=== PATIENT | male | born 1955 | race Caucasian/White ===

== ENCOUNTER 2022-07-23 08:25 | Outpatient (CLI) | payer MEDICARE, SELFPAY ==
--- NOTE | ~2022-07-23 | US_ITS ---
EXAMINATION: US abdomen complete DATE: 07/23/2022 09:42 INDICATION: Disorder of bilirubin metabolism TECHNIQUE: Multiple grayscale and Doppler ultrasound images of the abdomen were obtained. COMPARISON: None FINDINGS: Abdominal aorta is normal in caliber measuring 2.6 cm proximally, 2.3 cm the mid aorta and 2.0 cm in the distal aorta with normal triphasic waveforms on color Doppler. The pancreatic head and body are n ormal in appearance. The pancreatic tail is not visualized. Liver has normal echogenicity and contou r, with a smooth surface. No liver lesion identified. No intrahepatic biliary duct dilation suspected . Portal venous flow was seen in the hepatopetal, normal direction and has normal Doppler waveform. T he gallbladder is normal in appearance. There is no cholelithiasis. The common bile duct measures 2- 3 mm, which is normal. Sonographic Valencia sign was reported as negative by the public health teacher. There is normal renal contour and echogenicity bilaterally. The right kidney measures 11.1 x 5.7 x 5.3 cm and the left 11.2 x 7.0 x 5.3 cm. There are no focal renal lesions identified. There is no hydronephros is. Spleen measures 11.2 cm maximal length which is normal with multiple small echogenic and shadowin g calcifications likely sequela of old granulomatous disease. IMPRESSION: 1. Normal liver and gallbladder with no intra or extrahepatic biliary ductal dilation. Reviewed, dictated and finalized at location B. IMPRESSION: 1. Normal liver and gallbladder with no intra or extrahepatic biliary ductal di lation.
== END 2022-07-23 08:26 | disposition home or self-care (01) ==
PROVIDERS: PCP Emergency Medicine; Visit Provider Emergency Medicine
DX: E80.7 Disorder of bilirubin metabolism, unspecified (principal)
CPT/HCPCS: 76700

== ENCOUNTER → 2023-01-07 12:38 | Outpatient (CLI) | payer MEDICARE, SELFPAY ==
--- NOTE | ~2023-01-07 | CT_ITS ---
EXAMINATION: CT sinus wo con DATE: 01/07/2023 13:06 INDICATION: Sinus congestion. Deviated septum. TECHNIQUE: Computed tomography (CT) of the paranasal sinuses was performed without contrast. Iterativ e reconstruction technique was employed. Exam dose: 287.09 mGy-cm total exam DLP. COMPARISON: None FINDINGS: There is rightward deviation of the nasal septum. The inferior nasal turbinates are moderat salvador prominent, relatively symmetric. There is more prominent soft tissue swelling of the middle nasal turbinates with soft tissue opacification of the middle meatus bilaterally. There is mild mucoperiosteal thickening of the infrarenal portions of both frontal sinuses and extens mohit patchy opacification of the ethmoid air cells bilaterally. The right maxillary sinus and right ostiomeatal unit are completely opacified. There is severe soft tissue thickening of the left maxillary sinus, the lower half of the sinus compl etely opacified. There is opacification of the left maxillary ostium and infundibulum and left ethmoi d bulla. There is mild mucosal periosteal thickening of the sphenoid sinuses. The mastoid air cells are normally developed and aerated bilaterally. IMPRESSION: Rightward deviation of nasal septum Soft tissue swelling of the nasal turbinates, especially the middle nasal turbinates Opacification of the middle meatus bilaterally Opacification of the ostiomeatal units bilaterally Mild mucoperiosteal thickening of the intervertebral aspect of both frontal sinuses Extensive opacification of the ethmoid air cells bilaterally Complete opacification of the right maxi llary sinus and paraspinal soft tissue thickening of the left axilla sinus, especially the lower half Mild mucosal thickening of the sphenoid sinuses Reviewed, dictated and finalized at [facility]. Reviewed, dictated and finalized at location B. IMPRESSION: Rightward deviation of nasal septum Soft tissue swelling of the nasal turbinates, especially the middle nasal turbi nates Opacification of the middle meatus bilaterally Opacification of the ostiomeatal units bilaterally Mild mucoperiosteal thickening of the intervertebral aspect of both frontal sin uses Extensive opacification of the ethmoid air cells bilaterally Complete opacifica tion of the right maxillary sinus and paraspinal soft tissue thickening of the left axilla sinus, especially the lower half Mild mucosal thickening of the sphenoid sinuses
== END ==
PROVIDERS: PCP Emergency Medicine; Visit Provider Emergency Medicine
DX: J34.2 Deviated nasal septum (principal); R09.81 Nasal congestion; J34.3 Hypertrophy of nasal turbinates
CPT/HCPCS: 70486

== ENCOUNTER 2023-06-01 01:28 | Day surgery (SDC) | payer MEDICARE, SELFPAY ==
[2023-05-20 15:50] VITALS: BMI 26.2
--- NOTE | 2023-05-20 15:58 | PC.NURSE ---
Report to the Outpatient Waiting Room, entrance under the green pavilion located off [facility], at time __0700 on date ___06/01/23____. Planned Procedure Time: ___0900 . Time changes happen often and if your time is changed the preop area will call you the afternoon before. - You and your visitor will be asked to self-screen and do not enter if you have any COVID symptoms. - A mask is optional within the hospital at this time. Patients may have clear liquids (water, carbonated beverages, clear teas, apple juice) until 3 hours prior to surgery (0600 AM) with a maximum of 20 ounces. - No food from midnight until time of surgery - Infants may have breast milk until 4 hours before surgery, formula 6 hours prior to surgery. - Children will be allowed to drink immediately following surgery. If applicable, please bring a bottle or sippy cup to assist with drinking. Juice, water, soda, and popsicles are readily available. For infants on formula, please bring formula the day of surgery. Pacifiers are allowed. Take the following medications with a SIP of water the morning of surgery: ____NONE DO NOT STOP ANY OF YOUR OTHER PRESCRIPTION MEDICATIONS PRIOR TO SURGERY ?EXCEPT THE FOLLOWING Medications to discontinue per physician ALL VITAMINS/SUPPLEMENTS Date to take last dose____05/28/23 Please no make-up, nail telugu, hairspray, perfume, deodorant, or body powder the day of surgery. No jewelry (including any body piercings) or valuables the day of surgery, leave them at home. Please take a shower or bath the night before, or the morning of, surgery with an antibacterial soap. Wear comfortable, loose fitting clothing. Children are encouraged to wear pajamas. - Jewelry must be removed prior to entering the operating room. Rings and piercings that are not removed may be cut off. - The hospital will not accept responsibility for valuables. - Please leave all valuables, including medications, at home the day of surgery. If you are going home after surgery, a licensed cpr ambulance driver must drive you home. - NO public transportation without another adult if you receive anesthesia. - We recommend that an adult stay with you for 24 hours following discharge. - We also recommend that you do not drive, make important decision, drink alcoholic beverages, or take any drugs that were not prescribed by your health care provider for at least 24 hours after your discharge time. For Pediatric surgeries, we recommend two adults accompany the child home. Follow any additional instructions given to you from your surgeon. If you or anyone in your household have experienced Covid symptoms in the past week, please notify your surgeon or the nurse liaison at the phone number below for possible testing. Telephone instructions given to ____PT and asked if any additional questions and then verbalized understanding. Patient advised to call surgeon office or pre surgery nurse liaison [phone] if any additional questions.
[2023-06-01] VITALS (9 sets, daily range): BP systolic 127–166; BP diastolic 75–99; PULSE 54–66; RESP 10–18; TEMP 36.1–36.2; O2SAT 98–100
[2023-06-01] MEDS: ACETAMINOPHEN 500 MG TABLET 1000 MG PO (06:27)
[2023-06-01] MEDS: LACTATED RINGERS 1,000 ML 30 ML IV CONT ×2 (06:28→09:24)
--- NOTE | 2023-06-01 06:41 | P.PNAN_ITS ---
Anes - Initial Pre Proc Eval Procedure: Operation Date: 06/01/23 07:30 Proposed Procedures p Fusion Guided Bilateral Frontal Sinusotomy, Bilateral Ethmoidectomy, Bilateral Sphenoidotomy, Bilateral Maxillary Antrostomy, Bilateral Turbinate Reduction, - Deven Stewart MD s Septoplasty - Deven Stewart MD Date/Time: 06/01/23 06:41 Surgeon: Deven Stewart MD Pre Op Diagnosis: nasal polyps, chronic sinusitis Patient Data Age: 68 Gender: M Height: 1.8 m Weight: 85.45 kg Allergies Allergy/AdvReac Type Severity Reaction Status Date / Time No Known Allergies Allergy Verified 06/01/23 06:20 Home Medications Medication Instructions Recorded Confirmed Type B-complex with vitamin C 1 cap PO TID 05/20/23 06/01/23 History Black Garlic 500 mg DAILY 05/20/23 06/01/23 History Trace Meneral 1 tab-cap DAILY 05/20/23 06/01/23 History ascorbic acid 30 mg-collagen, 2 tablet PO TID 05/20/23 06/01/23 History hydrolyzed 833.3 mg tablet (Collagen Skin Renewal) calcium carbonate 333 mg-magnesium 1 tablet TID 05/20/23 06/01/23 History oxide 133 mg-zinc gluc 5 mg tablet folic acid 800 mcg tablet 0.8 mg PO DAILY 05/20/23 06/01/23 History glucosamine sulf dipot 2 cap PO BID 05/20/23 06/01/23 History chlr,msm,chond 550 mg-C 30 mg-ramos 1 mg capsule (Glucosamine Chondroitin) iodine 150 mcg tablet 150 mcg PO DAILY 05/20/23 06/01/23 History lactobacillus comb no.10 20 20,000 mmu cells PO DAILY 05/20/23 06/01/23 History billion cell capsule (Probiotic) lecithin 1260 mg capsule 1,260 mg PO DAILY 05/20/23 06/01/23 History methionine 500 mg capsule 500 mg PO BID 05/20/23 06/01/23 History vitamin A 3,000 mcg (10,000 unit) 3,000 mcg PO DAILY 05/20/23 06/01/23 History capsule vitamin E (dl, acetate) 400 unit 1 unit PO DAILY 05/20/23 06/01/23 History chewable tablet yeast 500 mg (7.5 gr) tablet 500 mg DAILY 05/20/23 06/01/23 History Patient hx anesthesia problems: none Family hx anesthesia problems: none Results Review: All pre-operative results and documents have been reviewed as part of the pre- operative evaluation. COUNT INCLUDES THE [facility] Past Medical History Medical History (Updated 06/01/23 @ 06:42 by Jimy Gonzales DO) CHICA (obstructive sleep apnea) Social History Social History Smoking status: Never smoker Second hand tobacco smoke exposure: No Alcohol intake: never Substance use: never Substance use type: does not use Living arrangements: alone Spiritual care concerns: No Anes - Eval Final PreProcedure Day of Procedure 06/01/23 06:41 Patient weight: overweight Heart: regular rate and rhythm Lungs: clear to auscultation Airway: Mallampati scale class II Neurological: alert and oriented Last oral intake: >/= 8 hours ASA classification: II Emergent: no Anesthetic plan: proceed Anesthesia type and monitoring: general ETT and standard monitoring Results Review: All pre-operative results and documents have been reviewed as part of the pre- operative evaluation. Informed Consent: The patient's anesthetic plan and its attendant risks and benefits were discussed with the patient/family/POA. Questions were solicited and answers provided to the satisfaction of the patient/family/POA.
[2023-06-01] MEDS: OXYMETAZOLINE HCL 0.05% NAS 15 ML BTL (*BKC) 1 SPRAY NASAL (06:55)
--- NOTE | 2023-06-01 07:08 | PM.IMHP ---
H&P: HPI History of Present Illness Date/Time: 06/01/23 07:08 Chief Complaint: nasal polyps Narrative: nasal polyps Review of Systems Review of Systems: All systems reviewed & are unremarkable except as noted in HPI and below PMFSH Past Medical History Medical History CHICA (obstructive sleep apnea) Social History Social History Smoking status: Never smoker Second hand tobacco smoke exposure: No Alcohol intake: never Substance use: never Substance use type: does not use Living arrangements: alone Spiritual care concerns: No Meds Home Medications and Allergies Home Medications Medication Instructions Recorded Confirmed Type B-complex with vitamin C 1 cap PO TID 05/20/23 06/01/23 History Black Garlic 500 mg DAILY 05/20/23 06/01/23 History Trace Meneral 1 tab-cap DAILY 05/20/23 06/01/23 History ascorbic acid 30 mg-collagen, 2 tablet PO TID 05/20/23 06/01/23 History hydrolyzed 833.3 mg tablet (Collagen Skin Renewal) calcium carbonate 333 mg-magnesium 1 tablet TID 05/20/23 06/01/23 History oxide 133 mg-zinc gluc 5 mg tablet folic acid 800 mcg tablet 0.8 mg PO DAILY 05/20/23 06/01/23 History glucosamine sulf dipot 2 cap PO BID 05/20/23 06/01/23 History chlr,msm,chond 550 mg-C 30 mg-ramos 1 mg capsule (Glucosamine Chondroitin) iodine 150 mcg tablet 150 mcg PO DAILY 05/20/23 06/01/23 History lactobacillus comb no.10 20 20,000 mmu cells PO DAILY 05/20/23 06/01/23 History billion cell capsule (Probiotic) lecithin 1260 mg capsule 1,260 mg PO DAILY 05/20/23 06/01/23 History methionine 500 mg capsule 500 mg PO BID 05/20/23 06/01/23 History vitamin A 3,000 mcg (10,000 unit) 3,000 mcg PO DAILY 05/20/23 06/01/23 History capsule vitamin E (dl, acetate) 400 unit 1 unit PO DAILY 05/20/23 06/01/23 History chewable tablet yeast 500 mg (7.5 gr) tablet 500 mg DAILY 05/20/23 06/01/23 History Allergies Allergy/AdvReac Type Severity Reaction Status Date / Time No Known Allergies Allergy Verified 06/01/23 06:20 Vital Signs Vital Signs - 24 hr 06/01/23 06:06 Temperature 36.1 C L Pulse Rate 54 L Respiratory Rate 18 Blood Pressure 127/76 Pulse Oximetry 100 Oxygen Delivery Room Air Exam Narrative: bilateral nasal polyps Assessment and Plan Assessment and plan (1) Nasal polyps: Code(s): J33.9 - Nasal polyp, unspecified Status: Acute Plan Zachary has chronic sinusitis and bilateral nasal polyps, here for endoscopic sinus surgery, septoplasty turbinoplasty under image guidance. r/b/a reviewed, all questions answered, pt agrees to proceed. Refer to outpt H&P for additional details.
--- NOTE | 2023-06-01 07:10 | WPDHPUPDATE1 ---
History and Physical Update Update Date/Time: 06/01/23 07:10 History and Physical has been reviewed, including an updated exam of the patient. There are NO changes in the patient's condition. Risks, benefits, and alternatives have been discussed and questions answered. Patient agrees to proceed with procedure.
[2023-06-01] MEDS: ceFAZolin 2 GM/D5W 50 ML 2 GM/50 ML BAG IVPB (07:25)
[2023-06-01] MEDS: LIDO 1%/EPINEPHRINE 1:100,000 20 ML VIAL 5 ML INFILTRATE (07:58)
[2023-06-01] MEDS: MUPIROCIN 2% OINT 22 GM TUBE 1 APPLIC EACH NARE (07:59)
--- NOTE | 2023-06-01 09:05 | W.PM.PROC2 ---
Procedure Note - Detailed Date of Procedure 06/01/23 Pre-op Diagnosis nasal polyps, chronic sinusitis Post-op Diagnosis Same Procedure Performed Bilateral frontal sinusotomy, total ethmoidectomy, maxillary antrostomy, sphenoidotomy, septoplasty and bilateral inferior turbinoplasty under image guidance. Surgeon Deven Stewart MD Anesthesia General Indications chronic sinusitis, deviated septum Findings right septal deviation, bilateral sinus polyps Description of Procedure On the date of procedure the patient was met in the preoperative area and risk and benefits of the procedure reviewed with the patient as documented in the H&P and they elected to proceed with surgery. Patient was brought back to the operating room by the anesthesia team and underwent general endotracheal anesthesia. Once an adequate plane of anesthesia was obtained a timeout was performed to assure the patient identification the patient here to be performed were correct. They were.The patient was then prepped and draped in the normal fashion for endoscopic sinus surgery. The diffusion image guidance system was calibrated and used for the entire case. Afrin-soaked pledgets were placed in the nasal cavities bilaterally. The entire case was performed under endoscopic visualization. Nasal endoscopy was performed at the beginning of the case. 1% lidocaine with 1:100,000 epinephrine was then injected into the root of the middle turbinate and lateral nasal wall. The right side was narrowed due to septal deviation.? Thus, septoplasty was required.? A left hemitransfixion incision was made in the left caudal septum and a mucoperichondrial flap was elevated in the usual fashion. The flap was elevated under endoscopic visualization and the remainder of the case was performed with endoscopic assistance. Using a D-knife, an incision was made through the cartilaginous septum with care to preserve the appropriate caudal and dorsal ?L-strut? of cartilage. The cartilage was then disarticulated from the bony-cartilaginous junction and the deviated cartilage was removed. Further deviated bone and cartilage was removed from the maxillary crest and posterior bony septum with care to avoid injury to the mucoperichondrial flap using a combination of dissection and Tyler forceps. Once this was completed, the hemitransfixion incision was closed using simple interrupted 4-0 chromic suture. A quilting stitch to reapproximate the mucoperichondrial flaps was then placed using 4-0 plain gut suture on a Joseph needle. Attention was then directed towards the right side. The middle turbinate was medialized and the osteomeatal complex was identified with a raya probe. Using a 90 degree backbiter, the uncinate process was reflected anteriorly and removed using a combination of sharp and powered dissection. The maxillary antrostomy was then created and widened by identifying the natural ostia and opening the sinus with straight reji-cut forceps, backbiter, and microdebrider. Continuing with the microdebrider, the anterior ethmoid bulla was opened. Careful dissection was carried out posteriorly, through the basal lamella and posterior ethmoid cells until the sphenoid rostrum was identified. Polyps were noted medial and lateral to the middle turbinate and were removed with microdebrider. A Mushtaq suction bluntly identified the sphenoid os and the opening was widened with microdebrider and mushroom punch to 5mm. Using an image guided curved suction as well as J-curette, the posterior most ethmoid cell was identified and the ethmoids were bluntly fractured and dissected from posterior to anterior along the base of the skull. The remaining bone fragments were removed with appropriate curved instruments and microdebrider.? Lastly, image guided frontal suction and sinus seeker were used to identify the frontal sinus and enter it.? Next, the left maxillary antrostomy, ethmoidectomy and sphenoidotomy were carried out in identical f
[2023-06-01] MEDS: fentaNYL CITRATE INJ (*CRX) 100 MCG/2 ML VIAL 25 MCG IV PUSH ×2 (09:24→09:28)
[2023-06-01] MEDS: oxyCODONE HCL (*CRX) 5 MG TAB IR PO (10:07)
== END 2023-06-01 11:15 | disposition home or self-care (01) ==
PROVIDERS: PCP Emergency Medicine; Visit Provider Otolaryngology
PROC: (CPT 31256; principal; 2023-06-01 07:30)
PROC: (CPT 30520; 2023-06-01 07:30)
DX: J32.9 Chronic sinusitis, unspecified (principal); J34.2 Deviated nasal septum; J33.9 Nasal polyp, unspecified; G47.33 Obstructive sleep apnea (adult) (pediatric); J33.8 Other polyp of sinus
CPT/HCPCS: 31256; 31257; 31276; 61782; 30520; 30140; A9270; J0330; J0690; J1100; J1170; J2250; J2405; J2704; J3010; J7120

== ENCOUNTER 2024-08-17 09:14 | Inpatient (IN) | payer MEDICARE, SELFPAY ==
[2024-08-17] VITALS (21 sets, daily range): BP systolic 122–174; BP diastolic 56–95; PULSE 38–75; RESP 12–147; TEMP 36.2–36.9; O2SAT 97–100
--- NOTE | ~2024-08-17 | XR_ITS ---
XR abdomen gastric tube insert Ordering provider: Padilla Whyte MD History: . ng tube . Comparison: None. FINDINGS: BOWEL: Nasogastric tube is seen with the tip in the distal stomach. Nonobstructive bowel gas pattern. ORGANOMEGALY: None. SIGNIFICANT PATHOLOGIC CALCIFICATIONS: None. OTHER: No free air is seen under the diaphragm. IMPRESSION: Nasogastric tube with the tip in the distal stomach. Reviewed, dictated and finalized at location A. CE ANALYST
--- NOTE | ~2024-08-17 | CT_ITS ---
EXAMINATION: CT abdomen pelvis w con DATE: 08/17/2024 11:09 INDICATION: Generalized abdominal pain. Vomiting. TECHNIQUE: Computed tomography (CT) of the abdomen and pelvis was performed with 100 mL Omnipaque 350 intravenous contrast. Automated exposure control and iterative reconstruction technique were employe d. The dose-length product was 576.23 mGy-cm. COMPARISON: None. FINDINGS: The visualized portions of the lung bases demonstrate mild atelectasis. A calcified right l hilario nodule is consistent with old granulomatous disease. No pleural effusion. The heart size is jeferson l. No pericardial effusion. There are coronary artery calcifications. There is a small sliding hiatal hernia. The liver, gallbladder, pancreas, and adrenal glands are normal. Calcifications in the splee n are consistent with old granulomatous disease. The kidneys are normal. The prostate is mildly enlar ged. There is diverticulosis of the colon without evidence of diverticulitis. The appendix is not vis ualized. There are dilated loops of small bowel with transition point in the mid abdomen. Distal to t he transition point, there are multiple decompressed loops of small bowel with wall thickening and me senteric edema. There is a second transition point distal to these edematous bowel loops that is in c lose proximity to the first transition point, consistent with a closed-loop obstruction. The two jacinto sition points are best seen on coronal images. There is a left inguinal hernia containing fat. There are no pathologically enlarged lymph nodes. There is trace pelvic ascites. There are old healed fract ures of right superior and inferior pubic rami. There is severe lumbar spondylosis. IMPRESSION: 1. Closed-loop small bowel obstruction. I called this result to Dr. Whyte. Reviewed, dictated and finalized at location A. EMIOLOGIST
--- NOTE | 2024-08-17 09:39 | ECG_ITS ---
Test Date: 2024-08-17 09:41:37 Measurements Intervals [place] Rate: 39 P: 64 NH: 177 QRS: 29 QRSD: 97 T: 46 QT: 504 QTc: 407 Interpretive Statements SLOW SINUS BRADYCARDIA BASELINE ARTIFACT- I, II, III, AVR, AVL, AVF, V1 ABNORMAL ECG No previous ECG available for comparison Electronically Signed On 08-17-2024 09:55:21 [employer] by Seun Arroyo D.O.
[2024-08-17 09:59] LABS: Basophils Percent Auto 0.1 % (0.2-1.2); Eosinophils Percent Auto 0.2 % (0-4.4); Hematocrit 42.1 % (42.0-52.0); Hemoglobin 13.9 g/dL (14.0-18.0); Immature Granulocyte Absolute 0.08 K/mm3 (0.00-0.031); Immature Granulocyte Percent A 0.5 % (0-0.5); Lymphocytes Absolute Auto 1.87 K/mm3 (0.9-3.2); Lymphocytes Percent Auto 11.1 % (18.3-44.2); Mean Corpuscular Hemoglobin 28.3 pg (26-34); Mean Corpuscular Volume 85.6 fl (80-100); Mean Platelet Volume 9.6 fl (7.4-10.4); Monocytes Absolute Auto 1.1 K/mm3 (0.1-0.6); Monocytes Percent Auto 6.7 % (2.6-8.5); Neutrophils Absolute Auto 13.7 K/mm3 (1.3-6.7); Neutrophils Percent Auto 81.4 % (45.5-73.1); Platelet Count Result 373 k/mm3 (150-375); Red Blood Count 4.92 M/mm3 (4.6-6.20); White Blood Count 16.9 K/mm3 (4.5-10.0)
[2024-08-17 10:12] LABS: Alanine Aminotransferase 23 U/L (6-50); Albumin Level 4.7 g/dL (3.5-5.1); Alkaline Phosphatase 75 U/L (38-126); Anion Gap 8 mmol/L (4-12); Aspartate Amino Transferase 36 U/L (17-59); Bilirubin,Total 1.5 mg/dL (0.2-1.3); Blood Urea Nitrogen 36 mg/dL (9-20); Calcium 9.3 mg/dL (8.4-10.2); Carbon Dioxide 26 mmol/L (22-30); Chloride 99 mmol/L (98-107); Estimated CRCL calculation 72 ml/min; Estimated Glomerular Filt Rate > 60; Glucose 135 mg/dL (65-110); Lipase 238 U/L (23-300); Potassium 4.6 mmol/L (3.4-5.0); Sodium 133 mmol/L (137-145)
[2024-08-17 10:50] LABS: Add Urine Microscopic? NO; Appearance Urine Clear (Clear); Bilirubin Urine Negative (Negative); Blood Urine Negative (Negative); Color Urine Yellow (Yellow); Glucose Urine UA Negative (Negative); Ketones Urine 1+ mg/dL (Negative); Leukocyte Esterase Ur Negative LEU/UL (Negative); Nitrate Urine Negative (Negative); Protein Urine Negative (Negative); Specific Grav Ur 1.026 (1.001-1.035); Urobilinogen Urine 0.2 mg/dL (<2.0); pH Urine 6.5 (5.0-9.0)
[2024-08-17] MEDS: ONDANSETRON INJ 4 MG/2 ML VIAL IV PUSH ×2 (10:59→18:02)
[2024-08-17] MEDS: SODIUM CHLORIDE 0.9% IV 2,000 ML 999 ML IV CONT (10:59)
[2024-08-17 11:26] LABS: Influenza A QL RT-PCR Negative (Negative); Influenza B QL RT-PCR Negative (Negative); RSV RNA, RT-PCR Negative (Negative); SARS-CoV-2 RNA PCR Negative (Negative)
--- NOTE | 2024-08-17 12:14 | ED.GENADULT ---
HPI - General Adult General Chief complaint: Abdominal Pain Stated complaint: abd pain Time Seen by Provider: 08/17/24 09:43 History of Present Illness HPI narrative: This is a 69-year-old male presenting ED with chief complaint of abdominal pain. At 1:00 a.m. this morning patient developed a pain in his upper abdomen. Says it feels like something is stuck. The pain is nonradiating 10 out 10 intensity and constant. He has never experienced pain like this before there are no exacerbating or alleviating factors. Patient has significant nausea and vomiting of undigested stomach products. He denies fevers chills chest pain or diarrhea. No history of abdominal surgeries. Related Data Home Medications Medication Instructions Recorded Confirmed B-complex with vitamin C 1 cap PO TID 05/20/23 06/01/23 Black Garlic 500 mg DAILY 05/20/23 06/01/23 Trace Meneral 1 tab-cap DAILY 05/20/23 06/01/23 ascorbic acid 30 mg-collagen, 2 tablet PO TID 05/20/23 06/01/23 hydrolyzed 833.3 mg tablet (Collagen Skin Renewal) calcium 333 mg 1 tablet TID 05/20/23 06/01/23 (carbonate)-magnesium 133 mg (oxide)-zinc 5 mg tablet folic acid 800 mcg tablet 0.8 mg PO DAILY 05/20/23 06/01/23 glucosamine sulf dipot 2 cap PO BID 05/20/23 06/01/23 chlr,msm,chond 550 mg-C 30 mg-ramos 1 mg capsule (Glucosamine Chondroitin) iodine 150 mcg tablet 150 mcg PO DAILY 05/20/23 06/01/23 lactobacillus comb no.10 20 20,000 mmu cells PO DAILY 05/20/23 06/01/23 billion cell capsule (Probiotic) lecithin 1260 mg capsule 1,260 mg PO DAILY 05/20/23 06/01/23 methionine 500 mg capsule 500 mg PO BID 05/20/23 06/01/23 vitamin A 3,000 mcg (10,000 unit) 3,000 mcg PO DAILY 05/20/23 06/01/23 capsule vitamin E (dl, acetate) 400 unit 1 unit PO DAILY 05/20/23 06/01/23 chewable tablet yeast 500 mg (7.5 gr) tablet 500 mg DAILY 05/20/23 06/01/23 Allergies Allergy/AdvReac Type Severity Reaction Status Date / Time No Known Allergies Allergy Verified 06/01/23 06:20 [facility] Past Medical History Medical History CHICA (obstructive sleep apnea) Social History Social History Smoking status: Never smoker Second hand tobacco smoke exposure: No Alcohol intake: never Substance use: never Substance use type: does not use Living arrangements: alone Spiritual care concerns: No Exam Narrative: APPEARANCE: No apparent distress. Head: atraumatic. EYES: EOMI, NOSE: Atraumatic NECK: Trachea midline RESPIRATORY: No increased rate of breathing CARDIOVASCULAR: RRR, ABDOMINAL: Tenderness/fullness to palpation in the epigastric area with voluntary guarding MUSCULOSKELETAl: No obvious deformities NEURO: Alert. Moving 4/4 extremities SKIN:: Warm, dry. Normal color PSYCHIATRIC: Normal affect Course Vital Signs Vital signs: Vital Signs Temperature 97.3 F L 08/17/24 09:21 Pulse Rate 45 L 08/17/24 09:21 Respiratory Rate 18 08/17/24 09:21 Blood Pressure 174/76 H 08/17/24 09:21 Pulse Oximetry 100 08/17/24 09:21 Oxygen Delivery Room Air 08/17/24 09:21 Temperature 97.4 F L 08/17/24 11:37 Pulse Rate 56 L 08/17/24 11:37 Respiratory Rate 12 08/17/24 11:37 Blood Pressure 134/95 H 08/17/24 11:37 Pulse Oximetry 100 08/17/24 11:37 Oxygen Delivery Room Air 08/17/24 09:45 Medical Decision Making [facility] Narrative Medical decision making narrative: -Course: 69-year-old male presenting with abdominal pain nausea and vomiting. CT abdomen pelvis showed a closed loop bowel obstruction. White count is 16.9. Patient started on antibiotics/fluids/pain medication/nausea meds. An NG-tube was placed to decompress the stomach. Lactic added. General surgery was consulted. Further management per the inpatient team. -DDX includes but is not limited to: small-bowel obstruction, gastroenteritis, gallbladder disease -Co-morbidities complicating care: obstructive sleep apnea w/ hypoglossal nerve stimulator -Independent interpretation of studies: labs/imaging reviewed -Discussion of Management/Consultants:Juliana Matias -Shared decision making / Disposition:admitted. Vital Signs Vital Signs: Vital Signs Temperature 97.3 F L 08/17/24 09:21 Pulse Rate 45 L 08/17/24 09:21 Respiratory Rate 18 08/17/24 09:21 Blood Pressure 174/76 H 08/17/24 09:21 Pulse Oximetry 100 08/17/24 09:21 Oxygen Delivery Room Air 08/17/24 09:21 Temperature 97.4 F L 08/17/24 11:37 Pulse Rate 56 L 08/17/24 11:37 Respiratory Rate 12 08/17/24 11:37 Blood Pressure 134/95 H 08/17/24 11:37 Pulse Oximetry 100 08/17/24 11:37 Oxygen Delivery Room Air 08/17/24 09:45 Lab Data 08/17/24 09:51 08/17/24 09:51 Labs: Lab Results 08/17/24 08/17/24 Range/Units 09:51 10:41 WBC 16.9 H (4.5-10.0) K/mm3 RBC 4.92 (4.6-6.20) M/mm3 Hgb 13.9 L (14.0-18.0) g/dL Hct 42.1 (42.0-52.0) % MCV 85.6 (80-100) fl MCH 28.3 (26-34) pg MCHC 33.0 (32-36) g/dl RDW 14.0 (11.5-14.5) % Plt Count 373 (150-375) k/mm3 MPV 9.6 (7.4-10.4) fl Immature Gran % (Auto) 0.5 (0-0.5) % Neut % (Auto) 81.4 H (45.5-73.1) % Lymph % (Auto) 11.1 L (18.3-44.2) % [place] % (Auto) 6.7 (2.6-8.5) % Eos % (Auto) 0.2 (0-4.4) % Baso % (Auto) 0.1 L (0.2-1.2) % Lymph # (Auto) 1.87 (0.9-3.2) K/mm3 [place] # (Auto) 1.1 H (0.1-0.6) K/mm3 Eos # (Auto) 0.0 (0-0.3) K/mm3 Baso # (Auto) 0.0 (0.0-0.1) K/mm3 Abs Immat Gran (auto) 0.08 H (0.00-0.031) K/mm3 Absolute Neuts (auto) 13.7 H (1.3-6.7) K/mm3 Absolute Nucleated RBC 0.000 (0.0-0.012) K/mm3 Nucleated RBC % 0.0 (0.0-0.2) % Sodium 133 L (137-145) mmol/L Potassium 4.6 (3.4-5.0) mmol/L Chloride 99 (98-107) mmol/L Carbon Dioxide 26 (22-30) mmol/L Anion Gap 8 (4-12) mmol/L BUN 36 H (9-20) mg/dL Creatinine 0.90 (0.7-1.3) mg/dL Estim Creat Clear Calc 72 ml/min Estimated GFR > 60 (59 - ) Glucose 135 H (65-110) mg/dL Calcium 9.3 (8.4-10.2) mg/dL Total Bilirubin 1.5 H (0.2-1.3) mg/dL AST 36 (17-59) U/L ALT 23 (6-50) U/L Alkaline Phosphatase 75 (38-126) U/L Total Protein 8.0 (6.3-8.2) g/dL Albumin 4.7 (3.5-5.1) g/dL Lipase 238 (23-300) U/L Urine Color Yellow (Yellow) Urine Appearance Clear (Clear) Urine pH 6.5 (5.0-9.0) Ur Specific [place] 1.026 (1.001-1.035) Urine Protein Negative (Negative) mg/dL Urine Glucose (UA) Negative (Negative) mg/dL Urine Ketones 1+ H (Negative) mg/dL Ur Blood (Man) Negative (Negative) Urine Nitrate Negative (Negative) Urine Bilirubin Negative (Negative) Urine Urobilinogen 0.2 (<2.0) mg/dL Leukocyte Esterase Rfl Negative (Negative) BENJAM[place]N/UL Influenza A (RT-PCR) Negative (Negative) Influenza B (RT-PCR) Negative (Negative) RSV (RT-PCR) Negative (Negative) SARS-CoV-2 RNA (RT-PCR) Negative (Negative) Critical Care Time Critical Care Time Critical Care Time: Yes Total Critical Care Time: 35 Discharge Plan Discharge Clinical Impression: Bowel obstruction Patient Disposition: Still a Patient Condition: Stable Prescriptions: No Action methionine 500 mg Capsule 500 mg PO BID vitamin A 3,000 mcg (10,000 unit) Capsule 3,000 mcg PO DAILY folic acid 800 mcg Tablet 0.8 mg PO DAILY lecithin 1,260 mg Capsule 1,260 mg PO DAILY B-complex with vitamin C Capsule 1 cap PO TID vitamin E (dl, acetate) 400 unit Tablet,Chewable 1 unit PO DAILY yeast 500 mg (7.5 gr) Tablet 500 mg DAILY iodine 150 mcg Tablet 150 mcg PO DAILY Probiotic 20 billion cell Capsule 20,000 mmu cells PO DAILY Rx Instructions: administer with a meal calcium carb-mag ox-zinc gluc 333-133-5 mg Tablet 1 tablet TID Glucosamine Chondroitin 550-30-1 mg Capsule 2 cap PO BID Collagen Skin Renewal 30-833.3 mg Tablet 2 tablet PO TID Black Garlic 500 mg DAILY Trace Meneral 1 tab-cap DAILY hydrocodone-acetaminophen 5-325 mg tablet 1 tablet PO Q4H PRN (Reason: pain) Qty: 20 0RF Follow-up/Referrals: Apolinar Anderson MD [Primary Care Provider] -
[2024-08-17] MEDS: HYDROmorphone HCL INJ (*CRX) 1 MG/ML SYR 0.5 MG IV PUSH (12:27)
--- NOTE | 2024-08-17 12:28 | P.HP_ITS ---
H&P: HPI History of Present Illness Date/Time: 08/17/24 12:28 Chief Complaint: Abdominal Pain Narrative: 69 y/o M presents here with abdominal pain with PMH of obstructive sleep apnea (has inspire implant). The patient presents here from home for further evaluation of abdominal pain. He reports acute onset of upper abdominal pain this morning at 1:00 a.m. Abdominal pain is accompanied by nausea without vomiting, chills, and abdominal distention. He describes the abdominal pain as more so on the left, as if something is stuck , slight radiation to the lateral perimeter of his abdomen, constant, and no aggravating or alleviating factors. Patient did attempt to self induce emesis to obtain relief with very little success and no relief. Patient also trialed Gas-X without relief. Patient has no history of small- bowel obstructions. No prior history of abdominal surgeries. Had had multiple colonoscopies, has been told he has a twisted colon that may cause problems later but has thus far not caused. Last bowel movement was at 04:30 a.m. this morning, small and hard. Denies fever, body aches, diarrhea. Initial VS at presentation: 97.3? F, HR 45, RR 18, 174/76, and 100% on RA. ED workup showed: WBC 16.9, hemoglobin 13.9, sodium 133, creatinine 0.9 and GFR >60, glucose 135, UA showed 1+ ketones. Viral PCR negative. CT of the abdomen/pelvis showed a closed loop small-bowel obstruction. Review of Systems Review of Systems: All systems reviewed & are unremarkable except as noted in HPI and below PMFSH Past Medical History Medical History (Updated 08/17/24 @ 16:48 by Juliana Vidales APRN) Nasal polyps CHICA (obstructive sleep apnea) Surgical History Surgical History No pertinent past surgical history Family History Family History Mother Dementia Father COPD (chronic obstructive pulmonary disease) Social History Social History Smoking status: Never smoker Second hand tobacco smoke exposure: No Alcohol intake: never Substance use: never Substance use type: does not use Do You Feel Safe in your Home?: Yes Lack of Transportation: No Lack of Food: Never True Current Housing: I Have Housing Concerned About Future Housing: No Difficulty Paying Gas/Electric Bills: No Difficulty Paying for Meds: No Currently Unemployed: No Education: Bachelor's Degree Difficulty w/ Childcare or Family Care: No Living arrangements: alone Spiritual care concerns: No Meds Home Medications and Allergies Home Medications Medication Instructions Recorded Confirmed Type B-complex with vitamin C 1 cap PO TID 05/20/23 08/17/24 History Black Garlic 500 mg DAILY 05/20/23 08/17/24 History Trace Meneral 1 tab-cap DAILY 05/20/23 08/17/24 History ascorbic acid 30 mg-collagen, 2 tablet PO TID 05/20/23 08/17/24 History hydrolyzed 833.3 mg tablet (Collagen Skin Renewal) calcium 333 mg 1 tablet TID 05/20/23 08/17/24 History (carbonate)-magnesium 133 mg (oxide)-zinc 5 mg tablet folic acid 800 mcg tablet 0.8 mg PO DAILY 05/20/23 08/17/24 History glucosamine sulf dipot 2 cap PO BID 05/20/23 08/17/24 History chlr,msm,chond 550 mg-C 30 mg-ramos 1 mg capsule (Glucosamine Chondroitin) iodine 150 mcg tablet 150 mcg PO DAILY 05/20/23 08/17/24 History lactobacillus comb no.10 20 20,000 mmu cells PO DAILY 05/20/23 08/17/24 History billion cell capsule (Probiotic) lecithin 1260 mg capsule 1,260 mg PO DAILY 05/20/23 08/17/24 History methionine 500 mg capsule 500 mg PO BID 05/20/23 08/17/24 History vitamin A 3,000 mcg (10,000 unit) 3,000 mcg PO DAILY 05/20/23 08/17/24 History capsule vitamin E (dl, acetate) 400 unit 1 unit PO DAILY 05/20/23 08/17/24 History chewable tablet yeast 500 mg (7.5 gr) tablet 500 mg DAILY 05/20/23 08/17/24 History prednisone 20 mg tablet 20 mg PO TID 08/17/24 08/17/24 History Allergies Allergy/AdvReac Type Severity Reaction Status Date / Time No Known Allergies Allergy Verified 08/17/24 15:04 Vital Signs Vital Signs - 24 hr 08/17/24 09:21 08/17/24 09:45 08/17/24 09:35 Temperature 97.3 F L 97.8 F Pulse Rate 45 L 38 L 43 L Respiratory Rate 18 16 15 Blood Pressure 174/76 H 157/80 H 158/83 H Pulse Oximetry 100 100 100 Oxygen Delivery Room Air Room Air 08/17/24 10:31 08/17/24 11:37 Temperature 97.8 F 97.4 F L Pulse Rate 41 L 56 L Respiratory Rate 14 12 Blood Pressure 163/82 H 134/95 H Pulse Oximetry 100 100 Oxygen Delivery Exam Const: General: comfortable and no acute distress Other: , male, nontoxic appearance HENMT: Ears: TM's normal bilaterally Face/Nose/Sinus: Normal nares present (NG in place in R nare) Eyes: General: appearance normal, both eyes and all related structures Sclera: sclerae normal Pupils: Equal, round and reactive pupils present EOM: EOMs intact bilaterally Resp: Effort & Inspection: normal respiratory effort Auscultation: clear to auscultation bilaterally Cardio: Rate: regular rate Rhythm: regular rhythm Other: S1-S2 present without murmur, rub, ectopy GI: Other: Abdomen soft and nondistended. Scant to moderate amount of tenderness with palpation to left/midline upper abdomen Skin: General skin exam: normal color and no rashes or lesions noted Wounds: no wounds Neuro: General: gait normal Speech: normal speech Motor exam (neuro): 5/5 motor strength present throughout Sensory Exam: normal sensation Other: A/Ox4 Extrem: General: normal to inspection Psych: Mental Status: mental status grossly normal Affect: normal affect Other: Good insight and judgment, very pleasant H&P: Results Labs Labs: Short CBC 08/17/24 Range/Units 09:51 WBC 16.9 H (4.5-10.0) K/mm3 Hgb 13.9 L (14.0-18.0) g/dL Hct 42.1 (42.0-52.0) % Plt Count 373 (150-375) k/mm3 BMP 08/17/24 09:51 Sodium 133 L Potassium 4.6 Chloride 99 Carbon Dioxide 26 BUN 36 H Creatinine 0.90 Glucose 135 H Calcium 9.3 Liver Function 08/17/24 Range/Units 09:51 Total Bilirubin 1.5 H (0.2-1.3) mg/dL AST 36 (17-59) U/L ALT 23 (6-50) U/L Alkaline Phosphatase 75 (38-126) U/L Albumin 4.7 (3.5-5.1) g/dL Urine 08/17/24 Range/Units 10:41 Urine Color Yellow (Yellow) Urine Appearance Clear (Clear) Urine pH 6.5 (5.0-9.0) Ur Specific [place] 1.026 (1.001-1.035) Urine Protein Negative (Negative) mg/dL Urine Glucose (UA) Negative (Negative) mg/dL Assessment and Plan Assessment and plan (1) Small bowel obstruction: Code(s): K56.609 - Unspecified intestinal obstruction, unspecified as to partial versus complete obstruction Status: Acute Assessment and Plan: - did not meet SIRS criteria, received 2L bolus. Lactic pending. - CT abdomen/pelvis: Closed loop small-bowel obstruction. There are dilated loops of small bowel with transition point in the mid abdomen. Distal to the transition point, there are multiple decompressed loops of small bowel with wall thickening and mesenteric edema. There is a second tra nsition point distal to these edematous bowel loops that is in close proximity to the first transition point, consistent with a closed-loop obstruction. - general surgery consulted, Florencio GILBERT. awaiting recommendations. OR today - NPO, NG placed - analgesics, antiemetics, and antipyretic p.r.n. - monitor I&Os and maintenance fluids: NS at 75 mL/hr - started on Zosyn on 08/17, continue - trend labs (2) CHICA (obstructive sleep apnea): Code(s): G47.33 - Obstructive sleep apnea (adult) (pediatric) Status: Acute Assessment and Plan: - has inspire implant, surgery in May and activated in Jun Plan Diet: NPO GI Prophylaxis: Pantoprazole DVT Prophylaxis: SCDs Lines: Peripheral Code Status: Full code Quality VTE Prophylaxis VTE prophylaxis: mechanical ordered Hospitalist [facility] Advance Care Plan I have confirmed that the patient's Advanced Care Plan is present, code status is documented, or surrogate decision maker is listed in patient medical record.: Yes Medication Reconciliation I have utilized all available resources to obtain, update and review the patients current medications (includes all prescriptions, OTC, herbals, cannabis, and nutritional supplements).: Yes
[2024-08-17] MEDS: SODIUM CHLORIDE 0.9% IV 1,000 ML 999 ML IV CONT (12:29)
[2024-08-17] MEDS: PIPERACILLN/TAZ 3.375GM/NS50ML 3.375 GM/50 ML BAG IVPB ×2 (12:31→18:07)
[2024-08-17 13:04] LABS: Lactic Acid Reflex 2.8 mmol/L (0.7-2.0)
--- NOTE | 2024-08-17 13:42 | ADMGEN ---
This patient, Zachary Biggs, was admitted to Medical Room 248-. Patient/family oriented to hospital policies and general routines including ID bracelet, bed and alarms, visiting hours, pain management, procedures, bathroom and other care routines, personal items, smoking policy, room service/diet, and visiting hours. Information on how to activate the Rapid Response Team has been discussed. Patient/Family are encouraged to report perceived risks to care and to ask questions if they do not understand what they are told or what they should do.
[2024-08-17] MEDS: PANTOPRAZOLE SODIUM IV 40 MG VIAL IV PUSH (14:21)
--- NOTE | 2024-08-17 14:49 | P.PNAN_ITS ---
Anes - Initial Pre Proc Eval Procedure: Operation Date: 08/17/24 15:30 Proposed Procedures p Exploratory Laparotomy, Possible Bowel Resection - Aquiles Matias MD Date/Time: 08/17/24 14:49 Surgeon: Manjinder Melchor MD Pre Op Diagnosis: Bowel Obstruction Patient Data Age: 69 Gender: M Height: 1.8 m Weight: 82 kg Last Vital Signs Temp 97.7 F 08/17/24 14:00 Pulse 54 L 08/17/24 14:00 Resp 16 08/17/24 14:00 BP 122/70 08/17/24 14:00 Pulse Ox 98 08/17/24 14:00 O2 Del Method Room Air 08/17/24 09:45 Allergies Allergy/AdvReac Type Severity Reaction Status Date / Time No Known Allergies Allergy Verified 08/17/24 13:46 Home Medications Medication Instructions Recorded Confirmed Type B-complex with vitamin C 1 cap PO TID 05/20/23 08/17/24 History Black Garlic 500 mg DAILY 05/20/23 08/17/24 History Trace Meneral 1 tab-cap DAILY 05/20/23 08/17/24 History ascorbic acid 30 mg-collagen, 2 tablet PO TID 05/20/23 08/17/24 History hydrolyzed 833.3 mg tablet (Collagen Skin Renewal) calcium 333 mg 1 tablet TID 05/20/23 08/17/24 History (carbonate)-magnesium 133 mg (oxide)-zinc 5 mg tablet folic acid 800 mcg tablet 0.8 mg PO DAILY 05/20/23 08/17/24 History glucosamine sulf dipot 2 cap PO BID 05/20/23 08/17/24 History chlr,msm,chond 550 mg-C 30 mg-ramos 1 mg capsule (Glucosamine Chondroitin) iodine 150 mcg tablet 150 mcg PO DAILY 05/20/23 08/17/24 History lactobacillus comb no.10 20 20,000 mmu cells PO DAILY 05/20/23 08/17/24 History billion cell capsule (Probiotic) lecithin 1260 mg capsule 1,260 mg PO DAILY 05/20/23 08/17/24 History methionine 500 mg capsule 500 mg PO BID 05/20/23 08/17/24 History vitamin A 3,000 mcg (10,000 unit) 3,000 mcg PO DAILY 05/20/23 08/17/24 History capsule vitamin E (dl, acetate) 400 unit 1 unit PO DAILY 05/20/23 08/17/24 History chewable tablet yeast 500 mg (7.5 gr) tablet 500 mg DAILY 05/20/23 08/17/24 History prednisone 20 mg tablet 20 mg PO TID 08/17/24 08/17/24 History Laboratory Tests 08/17/24 08/17/24 08/17/24 09:51 10:41 12:35 WBC 16.9 H K/mm3 (4.5-10.0) RBC 4.92 M/mm3 (4.6-6.20) Hgb 13.9 L g/dL (14.0-18.0) Hct 42.1 % (42.0-52.0) MCV 85.6 fl (80-100) MCH 28.3 pg (26-34) MCHC 33.0 g/dl (32-36) RDW 14.0 % (11.5-14.5) Plt Count 373 k/mm3 (150-375) MPV 9.6 fl (7.4-10.4) Immature Gran % (Auto) 0.5 % (0-0.5) Neut % (Auto) 81.4 H % (45.5-73.1) Lymph % (Auto) 11.1 L % (18.3-44.2) [place] % (Auto) 6.7 % (2.6-8.5) Eos % (Auto) 0.2 % (0-4.4) Baso % (Auto) 0.1 L % (0.2-1.2) Lymph # (Auto) 1.87 K/mm3 (0.9-3.2) [place] # (Auto) 1.1 H K/mm3 (0.1-0.6) Eos # (Auto) 0.0 K/mm3 (0-0.3) Baso # (Auto) 0.0 K/mm3 (0.0-0.1) Abs Immat Gran (auto) 0.08 H K/mm3 (0.00-0.031) Absolute Neuts (auto) 13.7 H K/mm3 (1.3-6.7) Absolute Nucleated RBC 0.000 K/mm3 (0.0-0.012) Nucleated RBC % 0.0 % (0.0-0.2) Sodium 133 L mmol/L (137-145) Potassium 4.6 mmol/L (3.4-5.0) Chloride 99 mmol/L (98-107) Carbon Dioxide 26 mmol/L (22-30) Anion Gap 8 mmol/L (4-12) BUN 36 H mg/dL (9-20) Creatinine 0.90 mg/dL (0.7-1.3) Estim Creat Clear Calc 72 ml/min Estimated GFR > 60 (59 - ) Glucose 135 H mg/dL (65-110) Lactic Acid 2.8 H mmol/L (0.7-2.0) Calcium 9.3 mg/dL (8.4-10.2) Total Bilirubin 1.5 H mg/dL (0.2-1.3) AST 36 U/L (17-59) ALT 23 U/L (6-50) Alkaline Phosphatase 75 U/L (38-126) Total Protein 8.0 g/dL (6.3-8.2) Albumin 4.7 g/dL (3.5-5.1) Lipase 238 U/L (23-300) Urine Color Yellow (Yellow) Urine Appearance Clear (Clear) Urine pH 6.5 (5.0-9.0) Ur Specific [place] 1.026 (1.001-1.035) Urine Protein Negative mg/dL (Negative) Urine Glucose (UA) Negative mg/dL (Negative) Urine Ketones 1+ H mg/dL (Negative) Ur Blood (Man) Negative (Negative) Urine Nitrate Negative (Negative) Urine Bilirubin Negative (Negative) Urine Urobilinogen 0.2 mg/dL (<2.0) Leukocyte Esterase Rfl Negative BENJAMÍN/UL (Negative) Influenza A (RT-PCR) Negative (Negative) Influenza B (RT-PCR) Negative (Negative) RSV (RT-PCR) Negative (Negative) SARS-CoV-2 RNA (RT-PCR) Negative (Negative) Patient hx anesthesia problems: none Family hx anesthesia problems: none Results Review: All pre-operative results and documents have been reviewed as part of the pre- operative evaluation. [facility] Past Medical History Medical History Nasal polyps CHICA (obstructive sleep apnea) Family History Family History Mother Dementia Father COPD (chronic obstructive pulmonary disease) Social History Social History Smoking status: Never smoker Second hand tobacco smoke exposure: No Alcohol intake: never Substance use: never Substance use type: does not use Do You Feel Safe in your Home?: Yes Lack of Transportation: No Lack of Food: Never True Current Housing: I Have Housing Concerned About Future Housing: No Difficulty Paying Gas/Electric Bills: No Difficulty Paying for Meds: No Currently Unemployed: No Education: Bachelor's Degree Difficulty w/ Childcare or Family Care: No Living arrangements: alone Spiritual care concerns: No Anes - Eval Final PreProcedure Day of Procedure 08/17/24 14:49 Patient weight: normal Heart: regular rate and rhythm Lungs: clear to auscultation Airway: Mallampati scale class II Neurological: alert and oriented Last oral intake: >/= 8 hours ASA classification: II Emergent: yes Anesthetic plan: proceed Anesthesia type and monitoring: general ETT and standard monitoring Results Review: All pre-operative results and documents have been reviewed as part of the pre- operative evaluation. Pt w hx of CHICA, now w closed loop bowel obstruction for emergent explorotory lapartomy. Informed Consent: The patient's anesthetic plan and its attendant risks and benefits were discussed with the patient/family/POA. Questions were solicited and answers provided to the satisfaction of the patient/family/POA.
--- NOTE | 2024-08-17 15:24 | PM.CNGS ---
Assessment and Plan Assessment and plan (1) Small bowel obstruction: Code(s): K56.609 - Unspecified intestinal obstruction, unspecified as to partial versus complete obstruction Status: Acute Assessment and Plan: Patient presented with acute onset of abdominal pain. CT scan shows evidence of a closed-loop small bowel obstruction, which was reviewed by Dr. Matias with the Radiologist. He also presents with leukocytosis and a mildly elevated lactic acid of 2.8. He has never had any abdominal surgery that would suggest any significant intraabdominal adhesions. Given the findings of a closed loop obstruction, which increases the risk for perforation and bowel ischemia, as well as his presentation with leukocytosis and an elevated lactic acid, we would recommend proceeding with an exploratory laparotomy, possible small bowel resection, by Dr. Matias today under general anesthesia. Description of the procedure, risks, benefits, alternatives, and expected recovery were discussed with the patient in detail. He agrees to proceed. We will continue IV antibiotics, NPO, IV fluids, and NG tube decompression pre-operatively. Plan to proceed urgently to the OR this afternoon for surgical exploration. (2) CHICA (obstructive sleep apnea): Code(s): G47.33 - Obstructive sleep apnea (adult) (pediatric) Status: Acute Plan I have discussed the patient's case and plan of care with Dr. Matias. Thank you for allowing us to see the patient in consultation and we will continue to follow along with you. History of Present Illness Consult details Consult date: 08/17/24 Reason for consult: other (Small-bowel obstruction) Requesting physician: Padilla Whyte MD Narrative: This is a 69-year-old man with past medical history of obstructive sleep apnea, who we have been asked to see in surgical consultation for a closed loop small bowel obstruction. He had a sudden onset of diffuse abdominal pain across his upper abdomen starting around 1:00 a.m. this morning. He denies ever having the symptoms in the past. He felt extremely nauseous, but was unable to vomit and actually attempted to force himself to vomit without success. His abdominal pain was constant and severe, therefore he came into the ED for evaluation. [place] [address], lactic acid 2.8. CT scan of the abdomen and pelvis shows evidence of a closed-loop small-bowel obstruction. He had an NG tube placed. He appears hemodynamically stable, but appears to be bradycardic with heart rate as low as the 30s and up to the 50s. He reports this is a normal finding for him and he is active and has a heart rate typically in the 40s. EKG showed sinus bradycardia. He has been started on IV Zosyn and admitted to the hospitalist service. He reports a significant improvement in his abdominal pain after receiving the IV Dilaudid. No previous abdominal surgeries. He does report having a recent flare of eczema on his right hand, for which he received a 5-7 day course of prednisone which he would have finished today. He also reports his only procedure was recent when he had a surgical implant, Insire, placed for his CHICA. Review of Systems Review of Systems: All systems reviewed & are unremarkable except as noted in HPI and below [facility] Past Medical History Medical History (Updated 08/17/24 @ 15:33 by ARBEN Bunch) Nasal polyps CHICA (obstructive sleep apnea) Surgical History Surgical History No pertinent past surgical history Family History Family History Mother Dementia Father COPD (chronic obstructive pulmonary disease) Social History Social History Smoking status: Never smoker Second hand tobacco smoke exposure: No Alcohol intake: never Substance use: never Substance use type: does not use Do You Feel Safe in your Home?: Yes Lack of Transportation: No Lack of Food: Never True Current Housing: I Have Housing Concerned About Future Housing: No Difficulty Paying Gas/Electric Bills: No Difficulty Paying for Meds: No Currently Unemployed: No Education: Bachelor's Degree Difficulty w/ Childcare or Family Care: No Living arrangements: alone Spiritual care concerns: No Meds Home Medications and Allergies Home Medications Medication Instructions Recorded Confirmed Type B-complex with vitamin C 1 cap PO TID 05/20/23 08/17/24 History Black Garlic 500 mg DAILY 05/20/23 08/17/24 History Trace Meneral 1 tab-cap DAILY 05/20/23 08/17/24 History ascorbic acid 30 mg-collagen, 2 tablet PO TID 05/20/23 08/17/24 History hydrolyzed 833.3 mg tablet (Collagen Skin Renewal) calcium 333 mg 1 tablet TID 05/20/23 08/17/24 History (carbonate)-magnesium 133 mg (oxide)-zinc 5 mg tablet folic acid 800 mcg tablet 0.8 mg PO DAILY 05/20/23 08/17/24 History glucosamine sulf dipot 2 cap PO BID 05/20/23 08/17/24 History chlr,msm,chond 550 mg-C 30 mg-ramos 1 mg capsule (Glucosamine Chondroitin) iodine 150 mcg tablet 150 mcg PO DAILY 05/20/23 08/17/24 History lactobacillus comb no.10 20 20,000 mmu cells PO DAILY 05/20/23 08/17/24 History billion cell capsule (Probiotic) lecithin 1260 mg capsule 1,260 mg PO DAILY 05/20/23 08/17/24 History methionine 500 mg capsule 500 mg PO BID 05/20/23 08/17/24 History vitamin A 3,000 mcg (10,000 unit) 3,000 mcg PO DAILY 05/20/23 08/17/24 History capsule vitamin E (dl, acetate) 400 unit 1 unit PO DAILY 05/20/23 08/17/24 History chewable tablet yeast 500 mg (7.5 gr) tablet 500 mg DAILY 05/20/23 08/17/24 History prednisone 20 mg tablet 20 mg PO TID 08/17/24 08/17/24 History Allergies Allergy/AdvReac Type Severity Reaction Status Date / Time No Known Allergies Allergy Verified 08/17/24 15:04 Vital Signs Vital Signs - 24 hr 08/17/24 09:21 08/17/24 09:45 08/17/24 09:35 Temperature 97.3 F L 97.8 F Pulse Rate 45 L 38 L 43 L Respiratory Rate 18 16 15 Blood Pressure 174/76 H 157/80 H 158/83 H Pulse Oximetry 100 100 100 Oxygen Delivery Room Air Room Air 08/17/24 10:31 08/17/24 11:37 08/17/24 12:40 Temperature 97.8 F 97.4 F L 97.5 F L Pulse Rate 41 L 56 L 46 L Respiratory Rate 14 12 147 H Blood Pressure 163/82 H 134/95 H 147/76 H Pulse Oximetry 100 100 99 Oxygen Delivery 08/17/24 14:00 08/17/24 15:00 Temperature 97.7 F 97.2 F L Pulse Rate 54 L 54 L Respiratory Rate 16 14 Blood Pressure 122/70 122/66 Pulse Oximetry 98 100 Oxygen Delivery Room Air Exam Const: General: comfortable and no acute distress Nutritional Appearance: average body habitus Orientation/consciousness: patient oriented x3 HENMT: Head: normocephalic and atraumatic Ears: hearing grossly normal bilaterally Mouth: Yes moist mucous membranes Eyes: General: appearance normal, both eyes and all related structures Pupils: Equal, round and reactive pupils present Neck: Neck: normal visual inspection and full ROM Resp: Effort & Inspection: no respiratory distress Auscultation: clear to auscultation bilaterally Cardio: Rate: bradycardic Rhythm: regular rhythm GI: GI Palp: No Hernia present Auscultation: absent bowel sounds Other: Abdomen soft and mildly distended. No obvious abdominal scars. He is diffusely tender across his upper abdomen with no guarding or rebound tenderness. Skin: General skin exam: normal color Neuro: General: moves all extremities and no focal motor deficits Speech: normal speech Motor exam (neuro): 5/5 motor strength present throughout Extrem: General: normal to inspection and no edema Psych: Mental Status: mental status grossly normal Attitude: cooperative Insight: Good insight present (Psych) Judgement: Good judgement present (Psych) Results Labs 08/17/24 09:51 08/17/24 09:51 Labs: Abnormal lab results 08/17/24 08/17/24 08/17/24 Range/Units 09:51 10:41 12:35 WBC 16.9 H (4.5-10.0) K/mm3 Hgb 13.9 L (14.0-18.0) g/dL Neut % (Auto) 81.4 H (45.5-73.1) % Lymph % (Auto) 11.1 L (18.3-44.2) % Baso % (Auto) 0.1 L (0.2-1.2) % [place] # (Auto) 1.1 H (0.1-0.6) K/mm3 Abs Immat Gran (auto) 0.08 H (0.00-0.031) K/mm3 Absolute Neuts (auto) 13.7 H (1.3-6.7) K/mm3 Sodium 133 L (137-145) mmol/L BUN 36 H (9-20) mg/dL Glucose 135 H (65-110) mg/dL Lactic Acid 2.8 H (0.7-2.0) mmol/L Total Bilirubin 1.5 H (0.2-1.3) mg/dL Urine Ketones 1+ H (Negative) mg/dL Diabetes panel 08/17/24 Range/Units 09:51 Sodium 133 L (137-145) mmol/L Potassium 4.6 (3.4-5.0) mmol/L Chloride 99 (98-107) mmol/L Carbon Dioxide 26 (22-30) mmol/L BUN 36 H (9-20) mg/dL Creatinine 0.90 (0.7-1.3) mg/dL Glucose 135 H (65-110) mg/dL Calcium 9.3 (8.4-10.2) mg/dL AST 36 (17-59) U/L ALT 23 (6-50) U/L Alkaline Phosphatase 75 (38-126) U/L Total Protein 8.0 (6.3-8.2) g/dL Albumin 4.7 (3.5-5.1) g/dL Calcium panel 08/17/24 Range/Units 09:51 Calcium 9.3 (8.4-10.2) mg/dL Albumin 4.7 (3.5-5.1) g/dL Pituitary panel 08/17/24 Range/Units 09:51 Sodium 133 L (137-145) mmol/L Potassium 4.6 (3.4-5.0) mmol/L Chloride 99 (98-107) mmol/L Carbon Dioxide 26 (22-30) mmol/L BUN 36 H (9-20) mg/dL Creatinine 0.90 (0.7-1.3) mg/dL Glucose 135 H (65-110) mg/dL Calcium 9.3 (8.4-10.2) mg/dL Adrenal panel 08/17/24 Range/Units 09:51 Sodium 133 L (137-145) mmol/L Potassium 4.6 (3.4-5.0) mmol/L Chloride 99 (98-107) mmol/L Carbon Dioxide 26 (22-30) mmol/L BUN 36 H (9-20) mg/dL Creatinine 0.90 (0.7-1.3) mg/dL Glucose 135 H (65-110) mg/dL Calcium 9.3 (8.4-10.2) mg/dL Total Bilirubin 1.5 H (0.2-1.3) mg/dL AST 36 (17-59) U/L ALT 23 (6-50) U/L Alkaline Phosphatase 75 (38-126) U/L Total Protein 8.0 (6.3-8.2) g/dL Albumin 4.7 (3.5-5.1) g/dL All other labs normal. Imaging Additional studies: ITS Impressions Abdomen/Pelvis CT 08/17/24 11:19 IMPRESSION: 1. Closed-loop small bowel obstruction. I called this result to Dr. Whyte. Abdomen X-Ray 08/17/24 13:28 IMPRESSION: Nasogastric tube with the tip in the distal stomach.
[2024-08-17 15:39] LABS: Reflex Lactic Acid Yes or No Add Lactic
--- NOTE | 2024-08-17 15:49 | WPDHPUPDATE1 ---
History and Physical Update Update Date/Time: 08/17/24 15:49 History and Physical has been reviewed, including an updated exam of the patient. There are NO changes in the patient's condition. Risks, benefits, and alternatives have been discussed and questions answered. Patient agrees to proceed with procedure.
[2024-08-17] MEDS: LIDO 1%/EPINEPHRINE 1:100,000 20 ML VIAL 30 ML INFILTRATE (17:09)
[2024-08-17] MEDS: BUPivacaine HCL 0.5% PF 30 ML VIAL INFILTRATE (17:09)
[2024-08-17] MEDS: LACTATED RINGERS 1,000 ML 30 ML IV CONT ×2 (17:43)
--- NOTE | 2024-08-17 17:50 | W.PM.PROC2 ---
Procedure Note - Detailed Date of Procedure 08/17/24 Pre-op Diagnosis Small-bowel obstruction Post-op Diagnosis Same Procedure Performed Exploratory laparotomy with adhesiolysis Surgeon Aquiles Matias MD Anesthesia General Indications Patient is a 69-year-old gentleman presented emergency room with a complaint of severe nausea vomiting for the past 12hours and worsening abdominal pain. In the emergency room elevated white blood count [address]. CT scan abdomen pelvis showed what appeared to be a closed loop small-bowel obstruction on CT scan with proximal fecalization of the small bowel. He presents now for an exploratory laparotomy. Findings The patient had an interloop adhesion of the small bowel into the mesentery causing acute angulation of the small bowel and small-bowel obstruction. The small bowel proximal to the area of adhesion had fecalization of material within the small bowel suggesting a somewhat prolonged obstruction. Distal to the area of obstruction the small bowel was decompress. All the small bowel was viable. There is no perforation. There was free fluid within the abdomen which was nonbloody and nonbilious. Exploration of the abdomen revealed no evidence of gastric or duodenal perforation. The colon was filled with stool but no perforation. The descending colon sigmoid colon extending the pelvis was filled with stool as well. Inflammation of the colon was seen. Description of Procedure After informed consent was obtained patient brought to the operating room was placed supine position and general endotracheal anesthesia was administered. A Rees catheter was placed decompress the bladder. Nasogastric tube was already in place. The abdomen is then prepped and draped usual sterile fashion. A time-out was then performed correctly identifying the patient as well as procedure to be performed. He was already on scheduled IV antibiotics. I then made a midline incision centered on the umbilicus and extending into the mid epigastric region and into the appointment in the umbilicus in the pubic symphysis. Dissection was then carried down through the subcu tissues to the midline fascia was encountered. I then divided the fascia at the umbilicus and entered the abdomen. I then opened the fascia the skin incision. There was a couple 100cc of nonbloody and nonbilious cloudy fluid noted in the mid abdomen and the pelvis. A Sarah retractor was then placed to aid with retraction and exposure. I then proceeded to viscera the small bowel. At the area of transition point in the midportion of the small bowel there was an adhesion tethering down the small bowel to the mesentery. This actually was easily released with blunt finger dissection. This did cause acute angulation the small bowel causing the obstruction and fecalization of small bowel proximal to the area of obstruction. Distal to the obstruction the small bowel was all normal decompressed. All the bowel was viable without any evidence of ischemia. No perforation the small bowel or colitis small bowel was seen. I then explored the colon all the colon appeared to be viable without evidence of inflammation or perforation. There was a lot of stool within the colon. The stomach was decompressed with nasogastric tube in place. No liver masses were palpated or visualized. I then proceeded to milk the fecalized small bowel contents from the midportion of small bowel into the distal small bowel. I then irrigated out the abdomen with about 3L of sterile warm saline solution. Hemostasis was good. I then aspirated all the fluid from the pelvis and from the abdomen. The omentum was then pulled down over the small bowel. The abdomen was then closed utilizing a looped # 1 PDS suture started at each in the incision and then run to the med just above the umbilicus. They were then tied together. I then closed the subcutaneous tissues with interrupted 3-0 Vicryl sutures. 1% lidocaine mixed with 0.5% Marcaine with epinephrine was then injected in the subcutaneous tissues around the incision. The skin edges were then approximated utilizing a running subcuticular 4-0 Monocryl suture. Incision was then cleaned and then skin glue and a sterile dressing was applied. The patient tolerated the procedure well no complications. All sponges, needles, and instrument counts were correct at the end procedure. EBL was _25__cc. The patient was awakened and taken to recovery in stable and satisfactory condition. Implants None Estimated Blood Loss 25 Drains No Packing No Pathology None sent Complications No immediate complications Condition Stable Disposition PACU [facility] Billing Surgery - Charge Forward: Surgery Billing
--- NOTE | 2024-08-17 17:55 | SUR.PHASEI ---
NG placed to low continuous suction per Dr. Matias.
[2024-08-17] MEDS: fentaNYL CITRATE INJ (*CRX) 100 MCG/2 ML VIAL 25 MCG IV PUSH ×8 (18:00→18:30)
--- NOTE | 2024-08-17 19:05 | SUR.PHASEI ---
Floor RN unable to take report at this time.
[2024-08-17] MEDS: MAG HYDROX/AL HYDROX/SIMETH 30 ML UDC PO (20:21)
[2024-08-17] MEDS: SODIUM CHLORIDE 0.9% IV 1,000 ML 125 ML IV CONT (20:21)
[2024-08-17] MEDS: IBUPROFEN IV 800 MG/200 ML 800 MG/200 ML BAG 400 MG IVPB (20:21)
[2024-08-17 21:50] LABS: Lactic Acid 2.6 mmol/L (0.7-2.0)
[2024-08-18 00:25] VITALS: BP 126/91; PULSE 66; RESP 18; TEMP 36.4; O2SAT 98
[2024-08-18] MEDS: PIPERACILLN/TAZ 3.375GM/NS50ML 3.375 GM/50 ML BAG IVPB ×2 (00:45→05:30)
[2024-08-18] MEDS: IBUPROFEN IV 800 MG/200 ML 800 MG/200 ML BAG 400 MG IVPB ×5 (00:55→23:43)
[2024-08-18 01:00] VITALS: BMI 25.2
[2024-08-18 04:00] VITALS: BP 120/73; PULSE 68; RESP 18; TEMP 36.3; O2SAT 91
[2024-08-18] MEDS: SODIUM CHLORIDE 0.9% IV 1,000 ML 125 ML IV CONT ×2 (05:30→17:19)
[2024-08-18 05:45] LABS: Basophils Percent Auto 0.1 % (0.2-1.2); Eosinophils Percent Auto 0.1 % (0-4.4); Hematocrit 36.9 % (42.0-52.0); Hemoglobin 12.3 g/dL (14.0-18.0); Immature Granulocyte Absolute 0.05 K/mm3 (0.00-0.031); Immature Granulocyte Percent A 0.4 % (0-0.5); Lymphocytes Absolute Auto 1.24 K/mm3 (0.9-3.2); Lymphocytes Percent Auto 9.8 % (18.3-44.2); Mean Corpuscular HGB Conc 33.3 g/dl (32-36); Mean Corpuscular Hemoglobin 28.7 pg (26-34); Mean Corpuscular Volume 86.2 fl (80-100); Mean Platelet Volume 9.6 fl (7.4-10.4); Monocytes Absolute Auto 1.2 K/mm3 (0.1-0.6); Monocytes Percent Auto 9.1 % (2.6-8.5); Neutrophils Absolute Auto 10.2 K/mm3 (1.3-6.7); Neutrophils Percent Auto 80.5 % (45.5-73.1); Platelet Count Result 296 k/mm3 (150-375); Red Blood Count 4.28 M/mm3 (4.6-6.20); Red Cell Distribution Width 14.5 % (11.5-14.5); White Blood Count 12.7 K/mm3 (4.5-10.0)
[2024-08-18] MEDS: MAG HYDROX/AL HYDROX/SIMETH 30 ML UDC PO ×3 (05:59→21:57)
[2024-08-18 06:01] LABS: Alanine Aminotransferase 17 U/L (6-50); Albumin Level 3.5 g/dL (3.5-5.1); Alkaline Phosphatase 50 U/L (38-126); Anion Gap 6 mmol/L (4-12); Aspartate Amino Transferase 28 U/L (17-59); Bilirubin,Total 2.4 mg/dL (0.2-1.3); Blood Urea Nitrogen 19 mg/dL (9-20); Carbon Dioxide 29 mmol/L (22-30); Chloride 102 mmol/L (98-107); Estimated CRCL calculation 81 ml/min; Estimated Glomerular Filt Rate > 60; Glucose 100 mg/dL (65-110); Potassium 4.5 mmol/L (3.4-5.0); Sodium 137 mmol/L (137-145)
[2024-08-18 08:00] VITALS: BP 124/68; PULSE 56; RESP 18; TEMP 36.8; O2SAT 99
[2024-08-18] MEDS: PANTOPRAZOLE SODIUM IV 40 MG VIAL IV PUSH (08:17)
[2024-08-18] MEDS: ENOXAPARIN 40 MG/0.4 ML SYRINGE SUB-Q (08:17)
[2024-08-18] MEDS: diazePAM INJ (*CRX) 10 MG/2 ML SYRINGE 5 MG IV PUSH ×2 (08:17→21:50)
[2024-08-18] MEDS: TRIAMCINOLONE ACET 0.1% OINT 15 GM TUBE 1 APPLIC TOPICAL ×2 (08:19→21:52)
--- NOTE | 2024-08-18 09:30 | WPDPN ---
Progress Note: A&P Assessment and Plan (1) Small bowel obstruction: Code(s): K56.609 - Unspecified intestinal obstruction, unspecified as to partial versus complete obstruction Status: Acute Assessment and Plan: Postop day 1 after laparotomy and adhesiolysis for small bowel obstruction. Continue nasogastric tube decompression today. He will have a postoperative ileus which will need to resolved before removing the NG tube. I have encouraged him to get up and walk in the hallways and set up in chair as much as possible today. He can have the NG tube clamped to walk in the halls. Continue GI prophylaxis with PPI and SCDs and Lovenox for DVT prophylaxis. Continue IV fluids. Can go ahead stop the IV antibiotics since all the bowel is viable and the obstruction has been relieved. Start him on some Reglan and suppository since he has a large stool burden in his colon. Continue supportive management. Subjective Date/time seen: 08/18/24 09:30 Interval history: Patient is postop day 1 after exploratory laparotomy and adhesiolysis for small bowel obstruction. All the bowel is viable. He actually feels pretty good today. Pain is well controlled with his regimen of scheduled IV ibuprofen, scheduled IV Valium, and Dilaudid. No nausea or vomiting. NG tube in place with minimal output. White blood count is 12,000. No fever. Electrolytes are normal. Exam GI: Other: Abdomen is soft and minimally distended. Midline incision is sutured with skin glue in place. No redness or drainage. Expected tenderness around the midline incision. Objective Data Vital Signs Vital Signs: Vital Signs - 24 hr 08/17/24 09:45 08/17/24 09:35 08/17/24 10:31 Temperature 36.6 C 36.6 C Pulse Rate 38 L 43 L 41 L Respiratory Rate 16 15 14 Blood Pressure 157/80 H 158/83 H 163/82 H Pulse Oximetry 100 100 100 Oxygen Delivery Room Air Oxygen Flow Rate 08/17/24 11:37 08/17/24 12:40 08/17/24 14:00 Temperature 36.3 C L 36.4 C L 36.5 C Pulse Rate 56 L 46 L 54 L Respiratory Rate 12 147 H 16 Blood Pressure 134/95 H 147/76 H 122/70 Pulse Oximetry 100 99 98 Oxygen Delivery Oxygen Flow Rate 08/17/24 15:00 08/17/24 17:43 08/17/24 17:55 Temperature 36.2 C L 36.5 C Pulse Rate 54 L 70 75 Respiratory Rate 14 14 18 Blood Pressure 122/66 139/56 L 140/78 Pulse Oximetry 100 99 100 Oxygen Delivery Room Air Simple Face Mask Simple Face Mask Oxygen Flow Rate 8 8 08/17/24 18:10 08/17/24 18:25 08/17/24 18:40 Temperature Pulse Rate 72 73 69 Respiratory Rate 18 16 18 Blood Pressure 155/73 H 143/70 H 143/67 H Pulse Oximetry 100 99 97 Oxygen Delivery Simple Face Mask Room Air Room Air Oxygen Flow Rate 8 08/17/24 18:55 08/17/24 19:10 08/17/24 19:25 Temperature 36.9 C Pulse Rate 70 66 68 Respiratory Rate 20 20 15 Blood Pressure 143/67 H 134/66 133/62 Pulse Oximetry 99 99 99 Oxygen Delivery Room Air Room Air Room Air Oxygen Flow Rate 08/17/24 19:30 08/17/24 19:45 08/17/24 20:15 Temperature 36.3 C L 36.4 C 36.3 C L Pulse Rate 64 66 66 Respiratory Rate 18 18 18 Blood Pressure 151/78 H 150/80 H 150/74 H Pulse Oximetry 100 100 99 Oxygen Delivery Oxygen Flow Rate 08/17/24 21:30 08/17/24 20:00 08/18/24 00:25 Temperature 36.6 C 36.4 C Pulse Rate 64 64 66 Respiratory Rate 18 18 18 Blood Pressure 137/74 126/91 H Pulse Oximetry 98 98 98 Oxygen Delivery Room Air Oxygen Flow Rate 08/18/24 04:00 08/18/24 08:00 Temperature 36.3 C L 36.8 C Pulse Rate 68 56 L Respiratory Rate 18 18 Blood Pressure 120/73 124/68 Pulse Oximetry 91 99 Oxygen Delivery Oxygen Flow Rate Intake/Output Intake/Output: Intake & Output 08/15/24 08/16/24 08/17/24 08/18/24 23:59 23:59 23:59 23:59 Intake Total 350 1700 Output Total 2250 Balance 350 -550 Meds/Results Medications: Active Medications Generic Name Dose Route Start Last Admin Trade Name Freq PRN Reason Stop Dose Admin Acetaminophen 650 mg 08/17/24 12:35 Acetaminophen 650 Mg Suppository RECTAL Q6H PRN Mild Pain (1-3) or Fever Al Hydrox/Mg Hydrox/Simethicone 30 ml 08/17/24 19:26 08/18/24 05:59 Mag Hydrox/Al Hydrox/Simeth 30 Ml Udc PO 30 ml Q8HR LUCINA Administration Bisacodyl 10 mg 08/18/24 09:30 Bisacodyl 10 Mg Suppository RECTAL QAM LUCINA Diazepam 5 mg 08/17/24 18:00 08/18/24 08:17 Diazepam Inj (*Crx) 10 Mg/2 Ml Syringe IV PUSH 5 mg Q12HR LUCINA Administration Enoxaparin Sodium 40 mg 08/18/24 09:00 08/18/24 08:17 Enoxaparin 40 Mg/0.4 Ml Syringe SUB-Q 40 mg DAILY LUCINA Administration Hydromorphone HCl 1 mg 08/17/24 17:41 Hydromorphone Hcl Inj (*Crx) 1 Mg/Ml Syr IV PUSH Q3H PRN Pain Rated 7-10 Piperacillin/Tazobactam/Dextrose 3.375 gm in 50 mls @ 100 mls/hr 08/17/24 18:00 08/18/24 06:00 Zosyn 3.375 Gm/Ns 50 Ml IVPB Infused Q6HR LUCINA Infusion Sodium Chloride 1,000 mls @ 125 mls/hr 08/17/24 12:40 08/18/24 05:30 Normal Saline Iv IV CONT 125 mls/hr .Q8H LUCINA Administration Ibuprofen 800 mg in 200 mls @ 400 mls/hr 08/17/24 18:00 08/18/24 06:00 Caldolor 800 Mg/200 Ml IVPB Infused Q6HR LUCINA Infusion Metoclopramide HCl 10 mg 08/18/24 12:00 Metoclopramide Hcl Inj 10 Mg/2 Ml Vial IV PUSH Q6HR LUCINA Ondansetron HCl 4 mg 08/17/24 16:00 Ondansetron Inj 4 Mg/2 Ml Vial IV PUSH Q6H PRN Nausea And Vomiting Pantoprazole Sodium 40 mg 08/17/24 12:40 08/18/24 08:17 Pantoprazole Sodium Iv 40 Mg Vial IV PUSH 40 mg QAM LUCINA Administration Triamcinolone Acetonide 1 applic 08/17/24 21:00 08/18/24 08:19 Triamcinolone Acet 0.1% Oint 15 Gm Tube TOPICAL 1 applic Q12HR LUCINA Administration Radiology Results: ITS Impressions Abdomen/Pelvis CT 08/17/24 11:19 IMPRESSION: 1. Closed-loop small bowel obstruction. I called this result to Dr. Whyte. Abdomen X-Ray 08/17/24 13:28 IMPRESSION: Nasogastric tube with the tip in the distal stomach. Labs Labs: Laboratory Results - last 24 hr 08/17/24 08/17/24 08/17/24 09:51 10:41 12:35 WBC 16.9 H RBC 4.92 Hgb 13.9 L Hct 42.1 MCV 85.6 MCH 28.3 MCHC 33.0 RDW 14.0 Plt Count 373 MPV 9.6 Immature Gran % (Auto) 0.5 Neut % (Auto) 81.4 H Lymph % (Auto) 11.1 L [place] % (Auto) 6.7 Eos % (Auto) 0.2 Baso % (Auto) 0.1 L Lymph # (Auto) 1.87 [place] # (Auto) 1.1 H Eos # (Auto) 0.0 Baso # (Auto) 0.0 Abs Immat Gran (auto) 0.08 H Absolute Neuts (auto) 13.7 H Absolute Nucleated RBC 0.000 Nucleated RBC % 0.0 Sodium 133 L Potassium 4.6 Chloride 99 Carbon Dioxide 26 Anion Gap 8 BUN 36 H Creatinine 0.90 Estim Creat Clear Calc 72 Estimated GFR > 60 Glucose 135 H Lactic Acid 2.8 H Calcium 9.3 Total Bilirubin 1.5 H AST 36 ALT 23 Alkaline Phosphatase 75 Total Protein 8.0 Albumin 4.7 Lipase 238 Urine Color Yellow Urine Appearance Clear Urine pH 6.5 Ur Specific [place] 1.026 Urine Protein Negative Urine Glucose (UA) Negative Urine Ketones 1+ H Ur Blood (Man) Negative Urine Nitrate Negative Urine Bilirubin Negative Urine Urobilinogen 0.2 Leukocyte Esterase Rfl Negative Influenza A (RT-PCR) Negative Influenza B (RT-PCR) Negative RSV (RT-PCR) Negative SARS-CoV-2 RNA (RT-PCR) Negative 08/17/24 08/18/24 21:33 05:13 WBC 12.7 H RBC 4.28 L Hgb 12.3 L Hct 36.9 L MCV 86.2 MCH 28.7 MCHC 33.3 RDW 14.5 Plt Count 296 MPV 9.6 Immature Gran % (Auto) 0.4 Neut % (Auto) 80.5 H Lymph % (Auto) 9.8 L [place] % (Auto) 9.1 H Eos % (Auto) 0.1 Baso % (Auto) 0.1 L Lymph # (Auto) 1.24 [place] # (Auto) 1.2 H Eos # (Auto) 0.0 Baso # (Auto) 0.0 Abs Immat Gran (auto) 0.05 H Absolute Neuts (auto) 10.2 H Absolute Nucleated RBC 0.000 Nucleated RBC % 0.0 Sodium 137 Potassium 4.5 Chloride 102 Carbon Dioxide 29 Anion Gap 6 BUN 19 D Creatinine 0.80 Estim Creat Clear Calc 81 Estimated GFR > 60 Glucose 100 Lactic Acid 2.6 H Calcium 8.0 L Total Bilirubin 2.4 H AST 28 ALT 17 Alkaline Phosphatase 50 Total Protein 6.0 L Albumin 3.5 Lipase Urine Color Urine Appearance Urine pH Ur Specific [place] Urine Protein Urine Glucose (UA) Urine Ketones Ur Blood (Man) Urine Nitrate Urine Bilirubin Urine Urobilinogen Leukocyte Esterase Rfl Influenza A (RT-PCR) Influenza B (RT-PCR) RSV (RT-PCR) SARS-CoV-2 RNA (RT-PCR)
--- NOTE | 2024-08-18 09:59 | P.PNAN_ITS ---
Anes - Prog Note Post-Op Date/Time: 08/18/24 09:59 Cardiovascular status: normal Respiratory status: normal Airway patency: baseline Mental status: baseline Post-Op hydration status: normal Vital Signs: Last Vital Signs Temp 36.8 C 08/18/24 08:00 Pulse 56 L 08/18/24 08:00 Resp 18 08/18/24 08:00 BP 124/68 08/18/24 08:00 Pulse Ox 99 08/18/24 08:00 O2 Del Method Room Air 08/17/24 20:00 O2 Flow Rate 8 08/17/24 18:10 Pain Score (VAS): 11/28 I/O: Intake & Output 08/17/24 08/18/24 08/18/24 23:59 07:59 15:59 Intake Total 350 1700 Output Total 2250 Balance 350 -550 Laboratory Tests 08/18/24 05:13 08/18/24 05:13 08/17/24 08/17/24 08/17/24 09:51 10:41 12:35 WBC 16.9 H RBC 4.92 Hgb 13.9 L Hct 42.1 MCV 85.6 MCH 28.3 MCHC 33.0 RDW 14.0 Plt Count 373 MPV 9.6 Immature Gran % (Auto) 0.5 Neut % (Auto) 81.4 H Lymph % (Auto) 11.1 L [place] % (Auto) 6.7 Eos % (Auto) 0.2 Baso % (Auto) 0.1 L Lymph # (Auto) 1.87 [place] # (Auto) 1.1 H Eos # (Auto) 0.0 Baso # (Auto) 0.0 Abs Immat Gran (auto) 0.08 H Absolute Neuts (auto) 13.7 H Absolute Nucleated RBC 0.000 Nucleated RBC % 0.0 Sodium 133 L Potassium 4.6 Chloride 99 Carbon Dioxide 26 Anion Gap 8 BUN 36 H Creatinine 0.90 Estim Creat Clear Calc 72 Estimated GFR > 60 Glucose 135 H Lactic Acid 2.8 H Calcium 9.3 Total Bilirubin 1.5 H AST 36 ALT 23 Alkaline Phosphatase 75 Total Protein 8.0 Albumin 4.7 Lipase 238 Urine Color Yellow Urine Appearance Clear Urine pH 6.5 Ur Specific [place] 1.026 Urine Protein Negative Urine Glucose (UA) Negative Urine Ketones 1+ H Ur Blood (Man) Negative Urine Nitrate Negative Urine Bilirubin Negative Urine Urobilinogen 0.2 Leukocyte Esterase Rfl Negative Influenza A (RT-PCR) Negative Influenza B (RT-PCR) Negative RSV (RT-PCR) Negative SARS-CoV-2 RNA (RT-PCR) Negative 08/17/24 08/18/24 21:33 05:13 WBC 12.7 H RBC 4.28 L Hgb 12.3 L Hct 36.9 L MCV 86.2 MCH 28.7 MCHC 33.3 RDW 14.5 Plt Count 296 MPV 9.6 Immature Gran % (Auto) 0.4 Neut % (Auto) 80.5 H Lymph % (Auto) 9.8 L [place] % (Auto) 9.1 H Eos % (Auto) 0.1 Baso % (Auto) 0.1 L Lymph # (Auto) 1.24 [place] # (Auto) 1.2 H Eos # (Auto) 0.0 Baso # (Auto) 0.0 Abs Immat Gran (auto) 0.05 H Absolute Neuts (auto) 10.2 H Absolute Nucleated RBC 0.000 Nucleated RBC % 0.0 Sodium 137 Potassium 4.5 Chloride 102 Carbon Dioxide 29 Anion Gap 6 BUN 19 D Creatinine 0.80 Estim Creat Clear Calc 81 Estimated GFR > 60 Glucose 100 Lactic Acid 2.6 H Calcium 8.0 L Total Bilirubin 2.4 H AST 28 ALT 17 Alkaline Phosphatase 50 Total Protein 6.0 L Albumin 3.5 Lipase Urine Color Urine Appearance Urine pH Ur Specific [place] Urine Protein Urine Glucose (UA) Urine Ketones Ur Blood (Man) Urine Nitrate Urine Bilirubin Urine Urobilinogen Leukocyte Esterase Rfl Influenza A (RT-PCR) Influenza B (RT-PCR) RSV (RT-PCR) SARS-CoV-2 RNA (RT-PCR) Post-procedural complaints: none Patient Feedback: Patient satisfied with anesthetic care.
--- NOTE | 2024-08-18 10:10 | PM.IMPN ---
Progress Note: A&P Assessment and Plan (1) Small bowel obstruction: Code(s): K56.609 - Unspecified intestinal obstruction, unspecified as to partial versus complete obstruction Status: Acute Assessment and Plan: - did not meet SIRS criteria, received 2L bolus on admission. - CT abdomen/pelvis: Closed loop small-bowel obstruction. There are dilated loops of small bowel with transition point in the mid abdomen. Distal to the transition point, there are multiple decompressed loops of small bowel with wall thickening and mesenteric edema. There is a second transition point distal to these edematous bowel loops that is in close proximity to the first transition point, consistent with a closed-loop obstruction. - general surgery following, Florencio GILBERT. - Post-op day 1 after laparotomy and adhesiolysis for small bowel obstruction. - Continue NG decompression for now. Pt will have a postoperative ileus which will need to resolved before removing the NG tube. - Started on scheduled Reglan. - Encouraged with activity and ambulation on hallway. - analgesics, antiemetics, and antipyretic p.r.n. - monitor I&Os and maintenance fluids: - Antibiotics discontinued with no infection signs. (2) CHICA (obstructive sleep apnea): Code(s): G47.33 - Obstructive sleep apnea (adult) (pediatric) Status: Acute Assessment and Plan: - has inspire implant, surgery in May and activated in Jun Plan Diet: NPO GI Prophylaxis: Pantoprazole DVT Prophylaxis: SCDs Lines: Peripheral Code Status: Full code Time Spent With Patient Time with patient: 15 - 25 minutes Subjective Date/time seen: 08/18/24 10:10 Patient states she feels much better today and nausea is much improved compared to yesterday. Denies abdominal pain or other distressful symptoms. Interval history: Patient calm on bedrest with family bedside, looks to be in no acute distress. Review of Systems Review of Systems: All systems reviewed & are unremarkable except as noted in HPI and below Exam Narrative: General: Well appearing, no acute distress. HEENT: Atraumatic, PERRL, EOM, anicteric, moist mucosa. NECK: Supple. Lungs: Clear bilaterally. Heart: RRR, no murmurs. Abdomen: Soft, non-tender, surgical dressing midline, +ve bowel sounds X4 quadrants. Extremities: Warm and dry. No edema, 2+ pedal and radial pulses. Skin: [place] and moist. No lesions noted. Neuro: Well oriented. CN II-XII grossly intact. Psych: Pleasant and co-operative. Objective Data Vital Signs Vital Signs: Vital Signs - 24 hr 08/17/24 10:31 08/17/24 11:37 08/17/24 12:40 Temperature 97.8 F 97.4 F L 97.5 F L Pulse Rate 41 L 56 L 46 L Respiratory Rate 14 12 147 H Blood Pressure 163/82 H 134/95 H 147/76 H Pulse Oximetry 100 100 99 Oxygen Delivery Oxygen Flow Rate 08/17/24 14:00 08/17/24 15:00 08/17/24 17:43 Temperature 97.7 F 97.2 F L 97.7 F Pulse Rate 54 L 54 L 70 Respiratory Rate 16 14 14 Blood Pressure 122/70 122/66 139/56 L Pulse Oximetry 98 100 99 Oxygen Delivery Room Air Simple Face Mask Oxygen Flow Rate 8 08/17/24 17:55 08/17/24 18:10 08/17/24 18:25 Temperature Pulse Rate 75 72 73 Respiratory Rate 18 18 16 Blood Pressure 140/78 155/73 H 143/70 H Pulse Oximetry 100 100 99 Oxygen Delivery Simple Face Mask Simple Face Mask Room Air Oxygen Flow Rate 8 8 08/17/24 18:40 08/17/24 18:55 08/17/24 19:10 Temperature Pulse Rate 69 70 66 Respiratory Rate 18 20 20 Blood Pressure 143/67 H 143/67 H 134/66 Pulse Oximetry 97 99 99 Oxygen Delivery Room Air Room Air Room Air Oxygen Flow Rate 08/17/24 19:25 08/17/24 19:30 08/17/24 19:45 Temperature 98.4 F 97.4 F L 97.6 F Pulse Rate 68 64 66 Respiratory Rate 15 18 18 Blood Pressure 133/62 151/78 H 150/80 H Pulse Oximetry 99 100 100 Oxygen Delivery Room Air Oxygen Flow Rate 08/17/24 20:15 08/17/24 21:30 08/17/24 20:00 Temperature 97.4 F L 97.8 F Pulse Rate 66 64 64 Respiratory Rate 18 18 18 Blood Pressure 150/74 H 137/74 Pulse Oximetry 99 98 98 Oxygen Delivery Room Air Oxygen Flow Rate 08/18/24 00:25 08/18/24 04:00 08/18/24 08:00 Temperature 97.6 F 97.4 F L 98.3 F Pulse Rate 66 68 56 L Respiratory Rate 18 18 18 Blood Pressure 126/91 H 120/73 124/68 Pulse Oximetry 98 91 99 Oxygen Delivery Oxygen Flow Rate Intake/Output Intake/Output: Intake & Output 08/15/24 08/16/24 08/17/24 08/18/24 23:59 23:59 23:59 23:59 Intake Total 350 1700 Output Total 2250 Balance 350 -550 Meds/Results Medications: Active Medications Generic Name Dose Route Start Last Admin Trade Name Freq PRN Reason Stop Dose Admin Acetaminophen 650 mg 08/17/24 12:35 Acetaminophen 650 Mg Suppository RECTAL Q6H PRN Mild Pain (1-3) or Fever Al Hydrox/Mg Hydrox/Simethicone 30 ml 08/17/24 19:26 08/18/24 05:59 Mag Hydrox/Al Hydrox/Simeth 30 Ml Udc PO 30 ml Q8HR LUCINA Administration Bisacodyl 10 mg 08/18/24 09:30 Bisacodyl 10 Mg Suppository RECTAL QAM LUCINA Diazepam 5 mg 08/17/24 18:00 08/18/24 08:17 Diazepam Inj (*Crx) 10 Mg/2 Ml Syringe IV PUSH 5 mg Q12HR LUCINA Administration Enoxaparin Sodium 40 mg 08/18/24 09:00 08/18/24 08:17 Enoxaparin 40 Mg/0.4 Ml Syringe SUB-Q 40 mg DAILY LUCINA Administration Hydromorphone HCl 1 mg 08/17/24 17:41 Hydromorphone Hcl Inj (*Crx) 1 Mg/Ml Syr IV PUSH Q3H PRN Pain Rated 7-10 Sodium Chloride 1,000 mls @ 125 mls/hr 08/17/24 12:40 08/18/24 05:30 Normal Saline Iv IV CONT 125 mls/hr .Q8H LUCINA Administration Ibuprofen 800 mg in 200 mls @ 400 mls/hr 08/17/24 18:00 08/18/24 06:00 Caldolor 800 Mg/200 Ml IVPB Infused Q6HR LUCINA Infusion Metoclopramide HCl 10 mg 08/18/24 12:00 Metoclopramide Hcl Inj 10 Mg/2 Ml Vial IV PUSH Q6HR LUCINA Ondansetron HCl 4 mg 08/17/24 16:00 Ondansetron Inj 4 Mg/2 Ml Vial IV PUSH Q6H PRN Nausea And Vomiting Pantoprazole Sodium 40 mg 08/17/24 12:40 08/18/24 08:17 Pantoprazole Sodium Iv 40 Mg Vial IV PUSH 40 mg QAM LUCINA Administration Triamcinolone Acetonide 1 applic 08/17/24 21:00 08/18/24 08:19 Triamcinolone Acet 0.1% Oint 15 Gm Tube TOPICAL 1 applic Q12HR LUCINA Administration Radiology Results: ITS Impressions Abdomen/Pelvis CT 08/17/24 11:19 IMPRESSION: 1. Closed-loop small bowel obstruction. I called this result to Dr. Whyte. Abdomen X-Ray 08/17/24 13:28 IMPRESSION: Nasogastric tube with the tip in the distal stomach. Labs Labs: Laboratory Results - last 24 hr 08/17/24 08/17/24 08/17/24 09:51 10:41 12:35 WBC RBC Hgb Hct MCV MCH MCHC RDW Plt Count MPV Immature Gran % (Auto) Neut % (Auto) Lymph % (Auto) [place] % (Auto) Eos % (Auto) Baso % (Auto) Lymph # (Auto) [place] # (Auto) Eos # (Auto) Baso # (Auto) Abs Immat Gran (auto) Absolute Neuts (auto) Absolute Nucleated RBC Nucleated RBC % Sodium 133 L Potassium 4.6 Chloride 99 Carbon Dioxide 26 Anion Gap 8 BUN 36 H Creatinine 0.90 Estim Creat Clear Calc 72 Estimated GFR > 60 Glucose 135 H Lactic Acid 2.8 H Calcium 9.3 Total Bilirubin 1.5 H AST 36 ALT 23 Alkaline Phosphatase 75 Total Protein 8.0 Albumin 4.7 Lipase 238 Urine Color Yellow Urine Appearance Clear Urine pH 6.5 Ur Specific [place] 1.026 Urine Protein Negative Urine Glucose (UA) Negative Urine Ketones 1+ H Ur Blood (Man) Negative Urine Nitrate Negative Urine Bilirubin Negative Urine Urobilinogen 0.2 Leukocyte Esterase Rfl Negative Influenza A (RT-PCR) Negative Influenza B (RT-PCR) Negative RSV (RT-PCR) Negative SARS-CoV-2 RNA (RT-PCR) Negative 08/17/24 08/18/24 21:33 05:13 WBC 12.7 H RBC 4.28 L Hgb 12.3 L Hct 36.9 L MCV 86.2 MCH 28.7 MCHC 33.3 RDW 14.5 Plt Count 296 MPV 9.6 Immature Gran % (Auto) 0.4 Neut % (Auto) 80.5 H Lymph % (Auto) 9.8 L [place] % (Auto) 9.1 H Eos % (Auto) 0.1 Baso % (Auto) 0.1 L Lymph # (Auto) 1.24 [place] # (Auto) 1.2 H Eos # (Auto) 0.0 Baso # (Auto) 0.0 Abs Immat Gran (auto) 0.05 H Absolute Neuts (auto) 10.2 H Absolute Nucleated RBC 0.000 Nucleated RBC % 0.0 Sodium 137 Potassium 4.5 Chloride 102 Carbon Dioxide 29 Anion Gap 6 BUN 19 D Creatinine 0.80 Estim Creat Clear Calc 81 Estimated GFR > 60 Glucose 100 Lactic Acid 2.6 H Calcium 8.0 L Total Bilirubin 2.4 H AST 28 ALT 17 Alkaline Phosphatase 50 Total Protein 6.0 L Albumin 3.5 Lipase Urine Color Urine Appearance Urine pH Ur Specific [place] Urine Protein Urine Glucose (UA) Urine Ketones Ur Blood (Man) Urine Nitrate Urine Bilirubin Urine Urobilinogen Leukocyte Esterase Rfl Influenza A (RT-PCR) Influenza B (RT-PCR) RSV (RT-PCR) SARS-CoV-2 RNA (RT-PCR) Quality VTE Prophylaxis VTE prophylaxis: mechanical ordered Hospitalist MIPS Advance Care Plan I have confirmed that the patient's Advanced Care Plan is present, code status is documented, or surrogate decision maker is listed in patient medical record.: Yes Medication Reconciliation I have utilized all available resources to obtain, update and review the patients current medications (includes all prescriptions, OTC, herbals, cannabis, and nutritional supplements).: Yes
[2024-08-18] MEDS: BISACODYL 10 MG SUPPOSITORY RECTAL (10:24)
[2024-08-18 12:00] VITALS: BP 120/67; PULSE 55; RESP 18; TEMP 36.4; O2SAT 98
[2024-08-18] MEDS: METOCLOPRAMIDE HCL INJ 10 MG/2 ML VIAL IV PUSH ×3 (12:04→23:43)
[2024-08-18 16:00] VITALS: BP 116/77; PULSE 55; RESP 18; TEMP 36.3; O2SAT 100
[2024-08-18 19:40] VITALS: BP 127/73; PULSE 52; RESP 16; TEMP 36.6; O2SAT 99
[2024-08-19 00:08] VITALS: BP 109/51; PULSE 53; RESP 18; TEMP 36.7; O2SAT 100
[2024-08-19] MEDS: SODIUM CHLORIDE 0.9% IV 1,000 ML 125 ML IV CONT (03:30)
[2024-08-19 04:11] VITALS: BP 127/68; PULSE 52; RESP 16; TEMP 36.8; O2SAT 99
[2024-08-19 05:13] LABS: Basophils Percent Auto 0.1 % (0.2-1.2); Eosinophils Absolute Auto 0.4 K/mm3 (0-0.3); Eosinophils Percent Auto 5.4 % (0-4.4); Hematocrit 36.3 % (42.0-52.0); Hemoglobin 11.7 g/dL (14.0-18.0); Immature Granulocyte Absolute 0.03 K/mm3 (0.00-0.031); Immature Granulocyte Percent A 0.4 % (0-0.5); Lymphocytes Absolute Auto 1.69 K/mm3 (0.9-3.2); Lymphocytes Percent Auto 22.2 % (18.3-44.2); Mean Corpuscular HGB Conc 32.2 g/dl (32-36); Mean Corpuscular Hemoglobin 28.5 pg (26-34); Mean Corpuscular Volume 88.3 fl (80-100); Mean Platelet Volume 9.3 fl (7.4-10.4); Monocytes Absolute Auto 0.9 K/mm3 (0.1-0.6); Monocytes Percent Auto 11.7 % (2.6-8.5); Neutrophils Absolute Auto 4.6 K/mm3 (1.3-6.7); Neutrophils Percent Auto 60.2 % (45.5-73.1); Platelet Count Result 247 k/mm3 (150-375); Red Blood Count 4.11 M/mm3 (4.6-6.20); Red Cell Distribution Width 14.4 % (11.5-14.5); White Blood Count 7.6 K/mm3 (4.5-10.0)
[2024-08-19 05:28] LABS: Anion Gap 4 mmol/L (4-12); Blood Urea Nitrogen 17 mg/dL (9-20); Calcium 8.1 mg/dL (8.4-10.2); Carbon Dioxide 31 mmol/L (22-30); Chloride 103 mmol/L (98-107); Estimated CRCL calculation 72 ml/min; Estimated Glomerular Filt Rate > 60; Glucose 75 mg/dL (65-110); Potassium 4.9 mmol/L (3.4-5.0); Sodium 138 mmol/L (137-145)
[2024-08-19] MEDS: METOCLOPRAMIDE HCL INJ 10 MG/2 ML VIAL IV PUSH (06:07)
[2024-08-19] MEDS: MAG HYDROX/AL HYDROX/SIMETH 30 ML UDC PO (06:07)
[2024-08-19] MEDS: IBUPROFEN IV 800 MG/200 ML 800 MG/200 ML BAG 400 MG IVPB ×2 (06:07→11:49)
[2024-08-19 07:00] LABS: Glucose Point of Care 80 mg/dl (65-105)
[2024-08-19] MEDS: PANTOPRAZOLE SODIUM IV 40 MG VIAL IV PUSH (08:51)
[2024-08-19] MEDS: ENOXAPARIN 40 MG/0.4 ML SYRINGE SUB-Q (08:51)
[2024-08-19] MEDS: TRIAMCINOLONE ACET 0.1% OINT 15 GM TUBE 1 APPLIC TOPICAL ×2 (08:52→21:55)
--- NOTE | 2024-08-19 08:54 | PM.IMPN ---
Progress Note: A&P Assessment and Plan (1) Small bowel obstruction: Code(s): K56.609 - Unspecified intestinal obstruction, unspecified as to partial versus complete obstruction Status: Acute Assessment and Plan: - did not meet SIRS criteria on admission, received 2L bolus on admission. - CT abdomen/pelvis: Closed loop small-bowel obstruction. There are dilated loops of small bowel with transition point in the mid abdomen. Distal to the transition point, there are multiple decompressed loops of small bowel with wall thickening and mesenteric edema. There is a second transition point distal to these edematous bowel loops that is in close proximity to the first transition point, consistent with a closed-loop obstruction. - Post-op day 2 after laparotomy and adhesiolysis for small bowel obstruction. - general surgery following, Florencio GILBERT. - Still on NG decompression, awaiting general surgery to re-evaluate. Pt will have a postoperative ileus which will need to resolved before removing the NG tube. - Continue scheduled Reglan. - Encouraged with activity and ambulation on hallway. - analgesics, antiemetics, and antipyretic p.r.n. - monitor I&Os and maintenance fluids. - Antibiotics discontinued with no infection signs. (2) CHICA (obstructive sleep apnea): Code(s): G47.33 - Obstructive sleep apnea (adult) (pediatric) Status: Acute Assessment and Plan: - has inspire implant, surgery in May and activated in Jun Plan Diet: NPO GI Prophylaxis: Pantoprazole DVT Prophylaxis: SCDs Lines: Peripheral Code Status: Full code Time Spent With Patient Time with patient: 15 - 25 minutes Subjective Date/time seen: 08/19/24 08:54 Patient states he's feeling kind of weak possibly from not eating for 3 days now. States abdomen feels alright and has no pain, nausea or vomiting. Interval history: Patient calm on bedrest and looks to be in no acute distress. Review of Systems Review of Systems: All systems reviewed & are unremarkable except as noted in HPI and below Exam Narrative: General: Well appearing, no acute distress. HEENT: Atraumatic, PERRL, EOM, anicteric, moist mucosa. NECK: Supple. Lungs: Clear bilaterally. Heart: RRR, no murmurs. Abdomen: Soft, non-tender, surgical dressing midline, N-G tube intact, +ve bowel sounds X4 quadrants. Extremities: Warm and dry. No edema, 2+ pedal and radial pulses. Skin: [place] and moist. No lesions noted. Midline surgical dressing clean, dry and intact. Neuro: Well oriented. CN II-XII grossly intact. Psych: Pleasant and co-operative. Objective Data Vital Signs Vital Signs: Vital Signs - 24 hr 08/18/24 12:00 08/18/24 16:00 08/18/24 19:40 Temperature 97.5 F L 97.4 F L 97.8 F Pulse Rate 55 L 55 L 52 L Respiratory Rate 18 18 16 Blood Pressure 120/67 116/77 127/73 Pulse Oximetry 98 100 99 08/19/24 00:08 08/19/24 04:11 Temperature 98.1 F 98.2 F Pulse Rate 53 L 52 L Respiratory Rate 18 16 Blood Pressure 109/51 L 127/68 Pulse Oximetry 100 99 Intake/Output Intake/Output: Intake & Output 08/16/24 08/17/24 08/18/24 08/19/24 23:59 23:59 23:59 23:59 Intake Total 350 3100 2400 Output Total 2675 700 Balance 011 641 2556 Meds/Results Medications: Active Medications Generic Name Dose Route Start Last Admin Trade Name Freq PRN Reason Stop Dose Admin Acetaminophen 650 mg 08/17/24 12:35 Acetaminophen 650 Mg Suppository RECTAL Q6H PRN Mild Pain (1-3) or Fever Al Hydrox/Mg Hydrox/Simethicone 30 ml 08/17/24 19:26 08/19/24 06:07 Mag Hydrox/Al Hydrox/Simeth 30 Ml Udc PO 30 ml Q8HR LUCINA Administration Bisacodyl 10 mg 08/18/24 09:30 08/18/24 10:24 Bisacodyl 10 Mg Suppository RECTAL 10 mg QAM LUCINA Administration Diazepam 5 mg 08/17/24 18:00 08/18/24 21:50 Diazepam Inj (*Crx) 10 Mg/2 Ml Syringe IV PUSH 5 mg Q12HR LUCINA Administration Enoxaparin Sodium 40 mg 08/18/24 09:00 08/18/24 08:17 Enoxaparin 40 Mg/0.4 Ml Syringe SUB-Q 40 mg DAILY LUCINA Administration Hydromorphone HCl 1 mg 08/17/24 17:41 Hydromorphone Hcl Inj (*Crx) 1 Mg/Ml Syr IV PUSH Q3H PRN Pain Rated 7-10 Sodium Chloride 1,000 mls @ 125 mls/hr 08/17/24 12:40 08/19/24 06:26 Normal Saline Iv IV CONT Not Given .Q8H LUCINA Ibuprofen 800 mg in 200 mls @ 400 mls/hr 08/17/24 18:00 08/19/24 06:37 Caldolor 800 Mg/200 Ml IVPB Infused Q6HR LUCINA Infusion Metoclopramide HCl 10 mg 08/18/24 12:00 08/19/24 06:07 Metoclopramide Hcl Inj 10 Mg/2 Ml Vial IV PUSH 10 mg Q6HR LUCINA Administration Ondansetron HCl 4 mg 08/17/24 16:00 Ondansetron Inj 4 Mg/2 Ml Vial IV PUSH Q6H PRN Nausea And Vomiting Pantoprazole Sodium 40 mg 08/17/24 12:40 08/18/24 08:17 Pantoprazole Sodium Iv 40 Mg Vial IV PUSH 40 mg QAM LCUINA Administration Triamcinolone Acetonide 1 applic 08/17/24 21:00 08/18/24 21:52 Triamcinolone Acet 0.1% Oint 15 Gm Tube TOPICAL 1 applic Q12HR LUCINA Administration Radiology Results: ITS Impressions Abdomen/Pelvis CT 08/17/24 11:19 IMPRESSION: 1. Closed-loop small bowel obstruction. I called this result to Dr. Whyte. Abdomen X-Ray 08/17/24 13:28 IMPRESSION: Nasogastric tube with the tip in the distal stomach. Labs Labs: Laboratory Results - last 24 hr 08/19/24 08/19/24 04:57 06:56 WBC 7.6 RBC 4.11 L Hgb 11.7 L Hct 36.3 L MCV 88.3 MCH 28.5 MCHC 32.2 RDW 14.4 Plt Count 247 MPV 9.3 Immature Gran % (Auto) 0.4 Neut % (Auto) 60.2 Lymph % (Auto) 22.2 [place] % (Auto) 11.7 H Eos % (Auto) 5.4 H Baso % (Auto) 0.1 L Lymph # (Auto) 1.69 [place] # (Auto) 0.9 H Eos # (Auto) 0.4 H Baso # (Auto) 0.0 Abs Immat Gran (auto) 0.03 Absolute Neuts (auto) 4.6 Absolute Nucleated RBC 0.000 Nucleated RBC % 0.0 Sodium 138 Potassium 4.9 Chloride 103 Carbon Dioxide 31 H Anion Gap 4 BUN 17 Creatinine 0.90 Estim Creat Clear Calc 72 Estimated GFR > 60 Glucose 75 POC Capillary Glucose 80 Calcium 8.1 L Quality VTE Prophylaxis VTE prophylaxis: mechanical ordered Hospitalist [facility] Advance Care Plan I have confirmed that the patient's Advanced Care Plan is present, code status is documented, or surrogate decision maker is listed in patient medical record.: Yes Medication Reconciliation I have utilized all available resources to obtain, update and review the patients current medications (includes all prescriptions, OTC, herbals, cannabis, and nutritional supplements).: Yes
[2024-08-19] MEDS: BISACODYL 10 MG SUPPOSITORY RECTAL (09:00)
[2024-08-19] MEDS: diazePAM INJ (*CRX) 10 MG/2 ML SYRINGE 5 MG IV PUSH ×2 (09:00→21:54)
[2024-08-19 09:49] VITALS: O2SAT 99
--- NOTE | 2024-08-19 11:35 | P.PN_ITS ---
Progress Note: A&P Assessment and Plan (1) Small bowel obstruction: Code(s): K56.609 - Unspecified intestinal obstruction, unspecified as to partial versus complete obstruction Status: Acute Assessment and Plan: Patient is doing well. Bowel function seems to be returning. We will go ahead remove the NG tube today and start him on clear liquids. Continue to get up and ambulate in the hallways and sitting up in a chair. Continue supportive management. Subjective Date/time seen: 08/19/24 11:35 Interval history: Patient is doing well today. Passing lots of flatus. Said he had a small bowel movement yesterday. Pain is doing pretty well. He is eating and walking in the hallways in sitting up in a chair quite a bit. NG tube output is minimal. Exam GI: Other: Abdomen is soft and nondistended. Midline incision is healing well no redness or drainage. Skin glue was then placed. Patient has good bowel sounds. Objective Data Vital Signs Vital Signs: Vital Signs - 24 hr 08/18/24 12:00 08/18/24 16:00 08/18/24 19:40 Temperature 36.4 C L 36.3 C L 36.6 C Pulse Rate 55 L 55 L 52 L Respiratory Rate 18 18 16 Blood Pressure 120/67 116/77 127/73 Pulse Oximetry 98 100 99 Oxygen Delivery Fraction of Inspired Oxygen 08/19/24 00:08 08/19/24 04:11 08/19/24 09:49 Temperature 36.7 C 36.8 C Pulse Rate 53 L 52 L Respiratory Rate 18 16 Blood Pressure 109/51 L 127/68 Pulse Oximetry 100 99 99 Oxygen Delivery Room Air Fraction of Inspired Oxygen 21 Intake/Output Intake/Output: Intake & Output 08/16/24 08/17/24 08/18/24 08/19/24 23:59 23:59 23:59 23:59 Intake Total 350 3100 2400 Output Total 2675 700 Balance 775 934 4116 Meds/Results Medications: Active Medications Generic Name Dose Route Start Last Admin Trade Name Freq PRN Reason Stop Dose Admin Acetaminophen 650 mg 08/17/24 12:35 Acetaminophen 650 Mg Suppository RECTAL Q6H PRN Mild Pain (1-3) or Fever Al Hydrox/Mg Hydrox/Simethicone 30 ml 08/17/24 19:26 08/19/24 06:07 Mag Hydrox/Al Hydrox/Simeth 30 Ml Udc PO 30 ml Q8HR LUCINA Administration Bisacodyl 10 mg 08/18/24 09:30 08/19/24 09:00 Bisacodyl 10 Mg Suppository RECTAL 10 mg QAM LUCINA Administration Diazepam 5 mg 08/17/24 18:00 08/19/24 09:00 Diazepam Inj (*Crx) 10 Mg/2 Ml Syringe IV PUSH 5 mg Q12HR LUCINA Administration Enoxaparin Sodium 40 mg 08/18/24 09:00 08/19/24 08:51 Enoxaparin 40 Mg/0.4 Ml Syringe SUB-Q 40 mg DAILY LUCINA Administration Hydromorphone HCl 1 mg 08/17/24 17:41 Hydromorphone Hcl Inj (*Crx) 1 Mg/Ml Syr IV PUSH Q3H PRN Pain Rated 7-10 Sodium Chloride 1,000 mls @ 125 mls/hr 08/17/24 12:40 08/19/24 06:26 Normal Saline Iv IV CONT Not Given .Q8H LUCINA Ibuprofen 800 mg in 200 mls @ 400 mls/hr 08/17/24 18:00 08/19/24 06:37 Caldolor 800 Mg/200 Ml IVPB Infused Q6HR LUCINA Infusion Metoclopramide HCl 10 mg 08/18/24 12:00 08/19/24 06:07 Metoclopramide Hcl Inj 10 Mg/2 Ml Vial IV PUSH 10 mg Q6HR LUCINA Administration Ondansetron HCl 4 mg 08/17/24 16:00 Ondansetron Inj 4 Mg/2 Ml Vial IV PUSH Q6H PRN Nausea And Vomiting Pantoprazole Sodium 40 mg 08/17/24 12:40 08/19/24 08:51 Pantoprazole Sodium Iv 40 Mg Vial IV PUSH 40 mg QAM LUCINA Administration Phenol 1 spray 08/19/24 09:14 Phenol/Sod Pheno [place] (*Bkc) MUCOUS MEM PRN PRN Sore Throat Triamcinolone Acetonide 1 applic 08/17/24 21:00 08/19/24 08:52 Triamcinolone Acet 0.1% Oint 15 Gm Tube TOPICAL 1 applic Q12HR LUCINA Administration Radiology Results: ITS Impressions Abdomen/Pelvis CT 08/17/24 11:19 IMPRESSION: 1. Closed-loop small bowel obstruction. I called this result to Dr. Whyte. Abdomen X-Ray 08/17/24 13:28 IMPRESSION: Nasogastric tube with the tip in the distal stomach. Labs Labs: Laboratory Results - last 24 hr 08/19/24 08/19/24 04:57 06:56 WBC 7.6 RBC 4.11 L Hgb 11.7 L Hct 36.3 L MCV 88.3 MCH 28.5 MCHC 32.2 RDW 14.4 Plt Count 247 MPV 9.3 Immature Gran % (Auto) 0.4 Neut % (Auto) 60.2 Lymph % (Auto) 22.2 [place] % (Auto) 11.7 H Eos % (Auto) 5.4 H Baso % (Auto) 0.1 L Lymph # (Auto) 1.69 [place] # (Auto) 0.9 H Eos # (Auto) 0.4 H Baso # (Auto) 0.0 Abs Immat Gran (auto) 0.03 Absolute Neuts (auto) 4.6 Absolute Nucleated RBC 0.000 Nucleated RBC % 0.0 Sodium 138 Potassium 4.9 Chloride 103 Carbon Dioxide 31 H Anion Gap 4 BUN 17 Creatinine 0.90 Estim Creat Clear Calc 72 Estimated GFR > 60 Glucose 75 POC Capillary Glucose 80 Calcium 8.1 L
[2024-08-19 13:32] VITALS: BP 109/50; PULSE 71; RESP 16; TEMP 36.3; O2SAT 100
[2024-08-19] MEDS: SODIUM CHLORIDE 0.9% IV 1,000 ML 90 ML IV CONT (15:00)
[2024-08-19] MEDS: IBUPROFEN IV 800 MG/200 ML 800 MG/200 ML BAG 200 MG IVPB (17:11)
[2024-08-19] MEDS: HYDROmorphone HCL INJ (*CRX) 1 MG/ML SYR IV PUSH (17:55)
[2024-08-19 19:49] VITALS: BP 134/65; PULSE 61; RESP 18; TEMP 36.8; O2SAT 100
[2024-08-19 22:07] VITALS: BP 110/61; PULSE 55; RESP 18; TEMP 36.9; O2SAT 99
[2024-08-20] MEDS: IBUPROFEN IV 800 MG/200 ML 800 MG/200 ML BAG 400 MG IVPB ×2 (01:11→06:11)
[2024-08-20] MEDS: HYDROmorphone HCL INJ (*CRX) 1 MG/ML SYR IV PUSH ×2 (01:15→13:10)
[2024-08-20 04:28] VITALS: BP 112/62; PULSE 52; RESP 16; TEMP 36.8; O2SAT 100
[2024-08-20] MEDS: SODIUM CHLORIDE 0.9% IV 1,000 ML 90 ML IV CONT (05:00)
[2024-08-20] MEDS: TRIAMCINOLONE ACET 0.1% OINT 15 GM TUBE 1 APPLIC TOPICAL ×2 (08:27→21:44)
[2024-08-20] MEDS: PANTOPRAZOLE 40 MG TABLET PO (08:28)
[2024-08-20] MEDS: ENOXAPARIN 40 MG/0.4 ML SYRINGE SUB-Q (08:28)
[2024-08-20] MEDS: BISACODYL 10 MG SUPPOSITORY RECTAL (08:28)
[2024-08-20] MEDS: diazePAM INJ (*CRX) 10 MG/2 ML SYRINGE 5 MG IV PUSH ×2 (08:28→21:42)
--- NOTE | 2024-08-20 10:17 | P.PNIM_ITS ---
Progress Note: A&P Assessment and Plan (1) Small bowel obstruction: Code(s): K56.609 - Unspecified intestinal obstruction, unspecified as to partial versus complete obstruction Status: Acute Assessment and Plan: - CT abdomen/pelvis: Closed loop small-bowel obstruction. There are dilated loops of small bowel with transition point in the mid abdomen. Distal to the transition point, there are multiple decompressed loops of small bowel with wall thickening and mesenteric edema. There is a second transition point distal to these edematous bowel loops that is in close proximity to the first transition point, consistent with a closed-loop obstruction. - Post-op day 3 after laparotomy and adhesiolysis for small bowel obstruction. - general surgery following, Florencio GILBERT. - Currently on clear liquid diet and tolerating well. - Per general surgery, Pt predicted to have a post-op ileus and was placed on NG tube prior to diet restart and appears to have resolved currently. - Continue scheduled Reglan. - Encouraged with activity and ambulation on hallway. - analgesics, antiemetics, and antipyretic p.r.n. - monitor I&Os and maintenance fluids. - Antibiotics discontinued with no infection signs. (2) CHICA (obstructive sleep apnea): Code(s): G47.33 - Obstructive sleep apnea (adult) (pediatric) Status: Acute Assessment and Plan: - has inspire implant, surgery in May and activated in Jun Plan Diet: NPO GI Prophylaxis: Pantoprazole DVT Prophylaxis: SCDs Lines: Peripheral Code Status: Full code Time Spent With Patient Time with patient: 15 - 25 minutes Subjective Date/time seen: 08/20/24 10:17 Patient states he feels alright. States he tolerated clear liquids alright and has been passing gas. Denies any GI symptoms and states has been walking on the hallways and slept well last night. Interval history: Patient calm on bedrest and looks to be in no acute distress. Review of Systems Review of Systems: All systems reviewed & are unremarkable except as noted in HPI and below Exam Narrative: General: Well appearing, no acute distress. HEENT: Atraumatic, PERRL, EOM, anicteric, moist mucosa. NECK: Supple. Lungs: Clear bilaterally. Heart: RRR, no murmurs. Abdomen: Soft, non-tender, surgical dressing midline, N-G tube intact, +ve bowel sounds X4 quadrants. Extremities: Warm and dry. No edema, 2+ pedal and radial pulses. Skin: [place] and moist. No lesions noted. Midline surgical dressing clean, dry and intact. Neuro: Well oriented. CN II-XII grossly intact. Psych: Pleasant and co-operative. Objective Data Vital Signs Vital Signs: Vital Signs - 24 hr 08/19/24 13:32 08/19/24 19:49 08/19/24 22:07 Temperature 97.4 F L 98.3 F 98.4 F Pulse Rate 71 61 55 L Respiratory Rate 16 18 18 Blood Pressure 109/50 L 134/65 110/61 Pulse Oximetry 100 100 99 Oxygen Delivery 08/19/24 20:00 08/20/24 04:28 Temperature 98.2 F Pulse Rate 52 L Respiratory Rate 16 Blood Pressure 112/62 Pulse Oximetry 100 Oxygen Delivery Room Air Intake/Output Intake/Output: Intake & Output 08/17/24 08/18/24 08/19/24 08/20/24 23:59 23:59 23:59 23:59 Intake Total 350 3100 5240 2038 Output Total 2675 700 800 Balance 328 327 2274 1238 Meds/Results Medications: Active Medications Generic Name Dose Route Start Last Admin Trade Name Freq PRN Reason Stop Dose Admin Acetaminophen 650 mg 08/17/24 12:35 Acetaminophen 650 Mg Suppository RECTAL Q6H PRN Mild Pain (1-3) or Fever Bisacodyl 10 mg 08/18/24 09:30 08/20/24 08:28 Bisacodyl 10 Mg Suppository RECTAL 10 mg QAM LUCINA Administration Diazepam 5 mg 08/17/24 18:00 08/20/24 08:28 Diazepam Inj (*Crx) 10 Mg/2 Ml Syringe IV PUSH 5 mg Q12HR LUCINA Administration Enoxaparin Sodium 40 mg 08/18/24 09:00 08/20/24 08:28 Enoxaparin 40 Mg/0.4 Ml Syringe SUB-Q 40 mg DAILY LUCINA Administration Hydromorphone HCl 1 mg 08/17/24 17:41 08/20/24 01:15 Hydromorphone Hcl Inj (*Crx) 1 Mg/Ml Syr IV PUSH 1 mg Q3H PRN Administration Pain Rated 7-10 Sodium Chloride 1,000 mls @ 90 mls/hr 08/17/24 12:40 08/20/24 06:39 Normal Saline Iv IV CONT Not Given .Q11H7M LUCINA Ibuprofen 800 mg in 200 mls @ 400 mls/hr 08/17/24 18:00 08/20/24 06:41 Caldolor 800 Mg/200 Ml IVPB Infused Q6HR LUCINA Infusion Ondansetron HCl 4 mg 08/17/24 16:00 Ondansetron Inj 4 Mg/2 Ml Vial IV PUSH Q6H PRN Nausea And Vomiting Pantoprazole Sodium 40 mg 08/20/24 09:00 08/20/24 08:28 Pantoprazole 40 Mg Tablet PO 40 mg QAM LUCINA Administration Phenol 1 spray 08/19/24 09:14 Phenol/Sod Pheno [place] Padgett (*Bkc) MUCOUS MEM PRN PRN Sore Throat Triamcinolone Acetonide 1 applic 08/17/24 21:00 08/20/24 08:27 Triamcinolone Acet 0.1% Oint 15 Gm Tube TOPICAL 1 applic Q12HR LUCINA Administration Radiology Results: ITS Impressions Abdomen/Pelvis CT 08/17/24 11:19 IMPRESSION: 1. Closed-loop small bowel obstruction. I called this result to Dr. Whyte. Abdomen X-Ray 08/17/24 13:28 IMPRESSION: Nasogastric tube with the tip in the distal stomach. Quality VTE Prophylaxis VTE prophylaxis: mechanical ordered Hospitalist [facility] Advance Care Plan I have confirmed that the patient's Advanced Care Plan is present, code status is documented, or surrogate decision maker is listed in patient medical record.: Yes Medication Reconciliation I have utilized all available resources to obtain, update and review the patients current medications (includes all prescriptions, OTC, herbals, cannabis, and nutritional supplements).: Yes
[2024-08-20] MEDS: IBUPROFEN IV 800 MG/200 ML 800 MG/200 ML BAG 200 MG IVPB (11:48)
--- NOTE | 2024-08-20 13:06 | WPDPN ---
Progress Note: A&P Assessment and Plan (1) Small bowel obstruction: Code(s): K56.609 - Unspecified intestinal obstruction, unspecified as to partial versus complete obstruction Status: Acute Assessment and Plan: Resolved. Postop day number 3 after exploratory laparotomy adhesiolysis. He is not having bowel movements. We will go ahead advanced to solid food today. Hopefully go home tomorrow. Hep-Lock IV fluids. Subjective Date/time seen: 08/20/24 13:06 Interval history: Patient is doing very well. Minimal pain. He is up walking the hallways making multiple laps around the nurse's station. He has had a couple bowel movements this morning which was semi formed. Tolerating liquids. Once more solid food. Exam GI: Other: Abdomen is soft and nondistended. Good bowel sounds. Midline incision is healing well without redness or drainage. No incisional hernia. Objective Data Vital Signs Vital Signs: Vital Signs - 24 hr 08/19/24 13:32 08/19/24 19:49 08/19/24 22:07 Temperature 36.3 C L 36.8 C 36.9 C Pulse Rate 71 61 55 L Respiratory Rate 16 18 18 Blood Pressure 109/50 L 134/65 110/61 Pulse Oximetry 100 100 99 Oxygen Delivery 08/19/24 20:00 08/20/24 04:28 Temperature 36.8 C Pulse Rate 52 L Respiratory Rate 16 Blood Pressure 112/62 Pulse Oximetry 100 Oxygen Delivery Room Air Intake/Output Intake/Output: Intake & Output 08/17/24 08/18/24 08/19/24 08/20/24 23:59 23:59 23:59 23:59 Intake Total 350 3100 5240 2820 Output Total 2675 700 800 Balance 634 230 2571 2019 Meds/Results Medications: Active Medications Generic Name Dose Route Start Last Admin Trade Name Freq PRN Reason Stop Dose Admin Acetaminophen 650 mg 08/17/24 12:35 Acetaminophen 650 Mg Suppository RECTAL Q6H PRN Mild Pain (1-3) or Fever Bisacodyl 10 mg 08/18/24 09:30 08/20/24 08:28 Bisacodyl 10 Mg Suppository RECTAL 10 mg QAM LUCINA Administration Diazepam 5 mg 08/17/24 18:00 08/20/24 08:28 Diazepam Inj (*Crx) 10 Mg/2 Ml Syringe IV PUSH 5 mg Q12HR LUCINA Administration Enoxaparin Sodium 40 mg 08/18/24 09:00 08/20/24 08:28 Enoxaparin 40 Mg/0.4 Ml Syringe SUB-Q 40 mg DAILY LUCINA Administration Hydromorphone HCl 1 mg 08/17/24 17:41 08/20/24 01:15 Hydromorphone Hcl Inj (*Crx) 1 Mg/Ml Syr IV PUSH 1 mg Q3H PRN Administration Pain Rated 7-10 Sodium Chloride 1,000 mls @ 90 mls/hr 08/17/24 12:40 08/20/24 06:39 Normal Saline Iv IV CONT Not Given .Q11H7M LUCINA Ibuprofen 800 mg in 200 mls @ 400 mls/hr 08/17/24 18:00 08/20/24 12:48 Caldolor 800 Mg/200 Ml IVPB Infused Q6HR LUCINA Infusion Ondansetron HCl 4 mg 08/17/24 16:00 Ondansetron Inj 4 Mg/2 Ml Vial IV PUSH Q6H PRN Nausea And Vomiting Pantoprazole Sodium 40 mg 08/20/24 09:00 08/20/24 08:28 Pantoprazole 40 Mg Tablet PO 40 mg QAM LUCINA Administration Phenol 1 spray 08/19/24 09:14 Phenol/Sod Pheno [place] Padgett (*Bkc) MUCOUS MEM PRN PRN Sore Throat Triamcinolone Acetonide 1 applic 08/17/24 21:00 08/20/24 08:27 Triamcinolone Acet 0.1% Oint 15 Gm Tube TOPICAL 1 applic Q12HR LUCINA Administration Radiology Results: ITS Impressions Abdomen/Pelvis CT 08/17/24 11:19 IMPRESSION: 1. Closed-loop small bowel obstruction. I called this result to Dr. Whyte. Abdomen X-Ray 08/17/24 13:28 IMPRESSION: Nasogastric tube with the tip in the distal stomach.
[2024-08-20 14:00] VITALS: BP 118/64; PULSE 64; RESP 17; TEMP 36.6; O2SAT 99
[2024-08-20] MEDS: HYDROcodone/acetaminophen (*CRX) 5-325 MG TABLET 1 TAB PO (15:42)
[2024-08-20] MEDS: oxyCODONE HCL (*CRX) 5 MG TAB IR PO (21:43)
[2024-08-20 22:00] VITALS: BP 123/69; PULSE 54; RESP 18; TEMP 36.2; O2SAT 100
[2024-08-21 05:10] LABS: Basophils Percent Auto 0.4 % (0.2-1.2); Eosinophils Absolute Auto 0.6 K/mm3 (0-0.3); Eosinophils Percent Auto 8.2 % (0-4.4); Hematocrit 38.5 % (42.0-52.0); Hemoglobin 12.3 g/dL (14.0-18.0); Immature Granulocyte Absolute 0.03 K/mm3 (0.00-0.031); Immature Granulocyte Percent A 0.4 % (0-0.5); Lymphocytes Absolute Auto 1.57 K/mm3 (0.9-3.2); Lymphocytes Percent Auto 20.5 % (18.3-44.2); Mean Corpuscular HGB Conc 31.9 g/dl (32-36); Mean Corpuscular Volume 87.7 fl (80-100); Mean Platelet Volume 9.8 fl (7.4-10.4); Neutrophils Absolute Auto 4.4 K/mm3 (1.3-6.7); Neutrophils Percent Auto 57.5 % (45.5-73.1); Platelet Count Result 301 k/mm3 (150-375); Red Blood Count 4.39 M/mm3 (4.6-6.20); Red Cell Distribution Width 13.9 % (11.5-14.5); White Blood Count 7.6 K/mm3 (4.5-10.0)
[2024-08-21 05:23] LABS: Anion Gap 5 mmol/L (4-12); Blood Urea Nitrogen 12 mg/dL (9-20); Calcium 8.5 mg/dL (8.4-10.2); Carbon Dioxide 28 mmol/L (22-30); Chloride 103 mmol/L (98-107); Estimated CRCL calculation 81 ml/min; Estimated Glomerular Filt Rate > 60; Glucose 85 mg/dL (65-110); Sodium 136 mmol/L (137-145)
[2024-08-21 05:54] VITALS: BP 140/68; PULSE 68; RESP 18; TEMP 36.2; O2SAT 100
[2024-08-21] MEDS: BISACODYL 10 MG SUPPOSITORY RECTAL (08:52)
[2024-08-21] MEDS: diazePAM INJ (*CRX) 10 MG/2 ML SYRINGE 5 MG IV PUSH (08:52)
[2024-08-21] MEDS: ENOXAPARIN 40 MG/0.4 ML SYRINGE SUB-Q (08:54)
[2024-08-21] MEDS: PANTOPRAZOLE 40 MG TABLET PO (08:54)
[2024-08-21] MEDS: TRIAMCINOLONE ACET 0.1% OINT 15 GM TUBE 1 APPLIC TOPICAL (08:55)
[2024-08-21 09:08] VITALS: O2SAT 98
--- NOTE | 2024-08-21 09:45 | P.PN_ITS ---
Progress Note: A&P Assessment and Plan (1) Small bowel obstruction: Code(s): K56.609 - Unspecified intestinal obstruction, unspecified as to partial versus complete obstruction Status: Acute Assessment and Plan: Postop for after the partial laparotomy adhesiolysis for small bowel obstruction. He is doing very well. Bowel function has returned. Pain is well controlled on small amounts oral narcotic medication. Incision looks good and abdomen is benign aside from expected mild tenderness around his incision. Okay to discharge home today. Follow-up see me in my office in 2 weeks. Discharge instructions are on the chart. Subjective Date/time seen: 08/21/24 09:45 Interval history: Patient doing very well. He is ready to go home. Tolerated solid food today. Still having some bowel movements. Pain is well controlled only on the occasional [place]. Exam GI: Other: Abdomen is soft and nondistended. Incision healing well. There is some bruising around the incision but no hematoma. Drainage or redness. No seroma or incisional hernia. Objective Data Vital Signs Vital Signs: Vital Signs - 24 hr 08/20/24 14:00 08/20/24 22:00 08/21/24 05:54 Temperature 36.6 C 36.2 C L 36.2 C L Pulse Rate 64 54 L 68 Respiratory Rate 17 18 18 Blood Pressure 118/64 123/69 140/68 Pulse Oximetry 99 100 100 Oxygen Delivery Fraction of Inspired Oxygen 08/21/24 09:08 Temperature Pulse Rate Respiratory Rate Blood Pressure Pulse Oximetry 98 Oxygen Delivery Room Air Fraction of Inspired Oxygen 21 Intake/Output Intake/Output: Intake & Output 08/18/24 08/19/24 08/20/24 08/21/24 23:59 23:59 23:59 23:59 Intake Total 3100 5240 3060 740 Output Total 2675 700 800 6 Balance 425 1310 2260 734 Meds/Results Medications: Active Medications Generic Name Dose Route Start Last Admin Trade Name Freq PRN Reason Stop Dose Admin Acetaminophen 650 mg 08/17/24 12:35 Acetaminophen 650 Mg Suppository RECTAL Q6H PRN Mild Pain (1-3) or Fever Hydrocodone Bitart/Acetaminophen 1 tab 08/20/24 13:09 08/20/24 15:42 Hydrocodone/Acetaminophen (*Crx) 5-325 Mg Tablet PO 1 tab Q4H PRN Administration Pain Rated 4-6 Bisacodyl 10 mg 08/18/24 09:30 08/21/24 08:52 Bisacodyl 10 Mg Suppository RECTAL 10 mg QAM LUCINA Administration Diazepam 5 mg 08/17/24 18:00 08/21/24 08:52 Diazepam Inj (*Crx) 10 Mg/2 Ml Syringe IV PUSH 5 mg Q12HR LUCINA Administration Enoxaparin Sodium 40 mg 08/18/24 09:00 08/21/24 08:54 Enoxaparin 40 Mg/0.4 Ml Syringe SUB-Q 40 mg DAILY LUCINA Administration Hydromorphone HCl 1 mg 08/17/24 17:41 08/20/24 13:10 Hydromorphone Hcl Inj (*Crx) 1 Mg/Ml Syr IV PUSH 1 mg Q3H PRN Administration Pain Rated 7-10 Ondansetron HCl 4 mg 08/17/24 16:00 Ondansetron Inj 4 Mg/2 Ml Vial IV PUSH Q6H PRN Nausea And Vomiting Oxycodone HCl 5 mg 08/20/24 13:09 08/20/24 21:43 Oxycodone Hcl (*Crx) 5 Mg Tab Ir PO 5 mg Q4H PRN Administration Pain Rated 7-10 Pantoprazole Sodium 40 mg 08/20/24 09:00 08/21/24 08:54 Pantoprazole 40 Mg Tablet PO 40 mg QAM LUCINA Administration Phenol 1 spray 08/19/24 09:14 Phenol/Sod Pheno [place] Padgett (*Bkc) MUCOUS MEM PRN PRN Sore Throat Triamcinolone Acetonide 1 applic 08/17/24 21:00 08/21/24 08:55 Triamcinolone Acet 0.1% Oint 15 Gm Tube TOPICAL 1 applic Q12HR LUCINA Administration Radiology Results: ITS Impressions Abdomen/Pelvis CT 08/17/24 11:19 IMPRESSION: 1. Closed-loop small bowel obstruction. I called this result to Dr. Whyte. Abdomen X-Ray 08/17/24 13:28 IMPRESSION: Nasogastric tube with the tip in the distal stomach. Labs Labs: Laboratory Results - last 24 hr 08/21/24 04:22 WBC 7.6 RBC 4.39 L Hgb 12.3 L Hct 38.5 L MCV 87.7 MCH 28.0 MCHC 31.9 L RDW 13.9 Plt Count 301 MPV 9.8 Immature Gran % (Auto) 0.4 Neut % (Auto) 57.5 Lymph % (Auto) 20.5 [place] % (Auto) 13.0 H Eos % (Auto) 8.2 H Baso % (Auto) 0.4 Lymph # (Auto) 1.57 [place] # (Auto) 1.0 H Eos # (Auto) 0.6 H Baso # (Auto) 0.0 Abs Immat Gran (auto) 0.03 Absolute Neuts (auto) 4.4 Absolute Nucleated RBC 0.000 Nucleated RBC % 0.0 Sodium 136 L Potassium 4.0 Chloride 103 Carbon Dioxide 28 Anion Gap 5 BUN 12 D Creatinine 0.80 Estim Creat Clear Calc 81 Estimated GFR > 60 Glucose 85 Calcium 8.5
[2024-08-21] MEDS: HYDROcodone/acetaminophen (*CRX) 5-325 MG TABLET 1 TAB PO (12:48)
--- NOTE | 2024-08-21 12:57 | PM.DS ---
DS: Admitting Diagnosis Discharge Date 08/21/2024 Admitting Diagnosis Small Bowel Obstruction. DS: Discharge Diagnosis Discharge Diagnosis (1) Small bowel obstruction: Code(s): K56.609 - Unspecified intestinal obstruction, unspecified as to partial versus complete obstruction Status: Acute Assessment and Plan: - CT abdomen/pelvis: Closed loop small-bowel obstruction. There are dilated loops of small bowel with transition point in the mid abdomen. Distal to the transition point, there are multiple decompressed loops of small bowel with wall thickening and mesenteric edema. There is a second transition point distal to these edematous bowel loops that is in close proximity to the first transition point, consistent with a closed-loop obstruction. - Post-op day 4 after laparotomy and adhesiolysis for small bowel obstruction. - general surgery following, Florencio GILBERT. - N-G tube discontinued post-op. - Currently on regular diet and tolerating well. - Reports small BM yesterday. - Scheduled Reglan provided. - Tolerating ambulation on hallway well independently. - analgesics, antiemetics, and antipyretic given p.r.n. - Antibiotics discontinued with no infection signs. - Cleared for discharge per general surgery. (2) CHICA (obstructive sleep apnea): Code(s): G47.33 - Obstructive sleep apnea (adult) (pediatric) Status: Acute Assessment and Plan: - has inspire implant, surgery in May and activated in Jun Plan Discharge Home. DS: Summary Hospital Course Reason for hospitalization: Small Bowel Obstruction. Hospital Course: Patient presented to the ER with reports of abdominal pain. CT of the abdomen/pelvis done in the ER showed a closed loop small-bowel obstruction. General surgery was consulted and Exploratory laparotomy was recommended and done successfully with adhesiolysis. Patient initially had an N-G tube placed for bowel decompression and it was discontinued post-op with diet resumption. He was treated with pain and nausea medications PRN for comfort. Patient was on Empiric Zosyn on admission but was discontinued post-op, with no signs of infection noted during surgery. Her WBC's were elevated at 16.9 on admission but resolved prior to discharge. Patient has been tolerating regular diet well the last 2 days, and has been cleared for discharge by general surgery, with no acute distress noted or reported prior to discharge. Status at Discharge Functional status at discharge: independent ambulation Overall status at discharge: patient is progressing back to baseline Time Spent with Patient Time attestation: Total time spent providing and/or coordinating discharge services: Time spent: Greater than 30 minutes Exam Narrative: General: Well appearing, no acute distress. HEENT: Atraumatic, PERRL, EOM, anicteric, moist mucosa. NECK: Supple. Lungs: Clear bilaterally. Heart: RRR, no murmurs. Abdomen: Soft, non-tender, non-distended, surgical incision midline with no drainage or open areas. Extremities: Warm and dry. No edema, 2+ pedal and radial pulses. Skin: [place] and moist. No lesions noted. Midline surgical incision clean, dry and intact. Neuro: Well oriented. CN II-XII grossly intact. Psych: Pleasant and co-operative. DS: Data Data Completed and Pending Labs on day of discharge: Labs from last 24 hours 08/21/24 04:22 WBC 7.6 RBC 4.39 L Hgb 12.3 L Hct 38.5 L MCV 87.7 MCH 28.0 MCHC 31.9 L RDW 13.9 Plt Count 301 MPV 9.8 Immature Gran % (Auto) 0.4 Neut % (Auto) 57.5 Lymph % (Auto) 20.5 [place] % (Auto) 13.0 H Eos % (Auto) 8.2 H Baso % (Auto) 0.4 Lymph # (Auto) 1.57 [place] # (Auto) 1.0 H Eos # (Auto) 0.6 H Baso # (Auto) 0.0 Abs Immat Gran (auto) 0.03 Absolute Neuts (auto) 4.4 Absolute Nucleated RBC 0.000 Nucleated RBC % 0.0 Sodium 136 L Potassium 4.0 Chloride 103 Carbon Dioxide 28 Anion Gap 5 BUN 12 D Creatinine 0.80 Estim Creat Clear Calc 81 Estimated GFR > 60 Glucose 85 Calcium 8.5 Discharge Plan Discharge Attending physician on discharge: Anton Alan Consulting providers: Aquiles Matias Discharging Clinician: Drew Barkley Anticipated Discharge Date/Time: 08/21/24 13:09 Patient Disposition: Home, Self-Care Activity: may shower and other - see discharge instructions Diet: regular Wound Care Instructions: other - see discharge instructions Discharge Instructions: Discharge patient home when stable. May remove dressing in 24 hr and then shower. No soaking incision under water x2 weeks. Protect surgical site from any trauma. Follow up in the office with Dr. Matias in 2 weeks. Call [phone] for an appointment. Resume home medications and any prescriptions for postoperative narcotic medication will be sent to the patient's pharmacy. If taking any blood thinners, okay to resume blood thinners in 24hours. No driving 3 days or until no longer taking any narcotic pain medications. May use Tylenol and/or ibuprofen in addition to or in place of narcotic pain medications. Patient Instructions: Antibiotic Form Stand Alone Forms: General Discharge Information Follow-up/Referrals: Apolinar Anderson MD [Primary Care Provider] - 1 Week Aquiles Matias MD [Physician] - Discharge Medications: New hydrocodone-acetaminophen 5-325 mg tablet 1 - 2 tablet PO Q4H PRN (Reason: pain) Qty: 20 0RF docusate sodium [Colace] 100 mg capsule 100 mg PO BID Qty: 60 2RF Continued methionine 500 mg Capsule 500 mg PO BID vitamin A 3,000 mcg (10,000 unit) Capsule 3,000 mcg PO DAILY folic acid 800 mcg Tablet 0.8 mg PO DAILY lecithin 1,260 mg Capsule 1,260 mg PO DAILY B-complex with vitamin C Capsule 1 cap PO TID vitamin E (dl, acetate) 400 unit Tablet,Chewable 1 unit PO DAILY yeast 500 mg (7.5 gr) Tablet 500 mg DAILY iodine 150 mcg Tablet 150 mcg PO DAILY Probiotic 20 billion cell Capsule 20,000 mmu cells PO DAILY Rx Instructions: administer with a meal calcium carb-mag ox-zinc gluc 333-133-5 mg Tablet 1 tablet TID Glucosamine Chondroitin 550-30-1 mg Capsule 2 cap PO BID Collagen Skin Renewal 30-833.3 mg Tablet 2 tablet PO TID Black Garlic 500 mg DAILY Trace Meneral 1 tab-cap DAILY prednisone 20 mg tablet 20 mg PO TID Rx Instructions: on last day today Date of admission: 08/17/24 12:18 Primary Care Provider: Apolinar Anderson Admitting Provider: Manjinder Melchor Attending physician on admission: Manjinder Melchor Condition: Stable Quality If No VTE Prophylaxis Answer both mechanical and pharmacologic: Reason no mechanical VTE proph: low risk/not indicated Reason no pharmacologic proph: low risk/not indicated Hospitalist MIPS Heart Failure (Exclusion) Patient has history of Heart Transplant or Left Ventricular Assistive Device?: No IF YES, STOP HERE Heart Failure (Qualifier) Patient has current or prior documentation of LVEF less than or equal to 40%, or mod/servere depressed LVSF?: No IF NO, STOP HERE
== END 2024-08-21 13:37 | disposition home or self-care (01) | DRG 337 ==
LOC: ANHED 12:27 → ANH2MED 12:57
PROVIDERS: Nurse Practitioner Adult Health; Student in an Organized Health Care Education/Training Program; Surgery; Admitting Provider Internal Medicine; Emergency Provider Emergency Medicine; PCP Emergency Medicine; Visit Provider Internal Medicine
PROC: 0DN80ZZ Release Small Intestine, Open Approach (ICD-10-PCS; CPT 49000; principal; 2024-08-17 15:30)
DX: K56.50 Intestinal adhesions [bands], unspecified as to partial versus complete obstruction (principal); G47.33 Obstructive sleep apnea (adult) (pediatric); L30.9 Dermatitis, unspecified; Z20.822 Contact with and (suspected) exposure to COVID-19; Z96.82 Presence of neurostimulator
CPT/HCPCS: 36415; 74177; 80048; 80053; 81003; 82948; 83605; 83690; 85025; 87637; 93005; 96374; 99285; A9270; J0330; J1171; J1650; J1741; J2004; J2250; J2405; J2470; J2543; J2704; J2765; J3010; J3360; J7030; J7120; Q9967